=== PATIENT | male | born 1995 | race Caucasian/White ===

== ENCOUNTER 2017-01-21 20:24 | Inpatient (IN) | payer OTHER ==
[2017-01-21 21:38] LABS: HEMATOCRIT 45.2 % (41.0-60); HEMOGLOBIN 14.6 gm/dL (12-16); MEAN CELL VOLUME 75.4 fl (80-99); MEAN CORPUSCULAR HEMOGLOBIN 24.3 pg (26.0-30.0); MEAN CORPUSCULAR HGB CONC 32.3 pg (28.0-36.0); MEAN PLATELET VOLUME 10.4 fl; NEUTROPHILE ABSOLUTE 18.8 Th/cmm (1.8-8.0); PLATELET COUNT 207 Th/cmm (150-400); RED BLOOD COUNT 5.99 Mil/cmm (4.30-5.70); RED CELL DISTRIBUTION WIDTH 14.5 % (11.5-20.0)
[2017-01-21 21:41] LABS: WHITE BLOOD COUNT 20.6 Th/cmm (4.8-10.8)
[2017-01-21 21:43] LABS: INR 1.13 (0.5-1.4); PROTHROMBIN TIME (TEST) 11.9 SECONDS (9.5-11.5)
[2017-01-21 21:48] LABS: ALB/GLOB RATIO 1.6 (1.0-1.8); ALKALINE PHOSPHATASE 119 U/L (34-104); ANION GAP 12.2 (7.0-16.0); BILIRUBIN,TOTAL 1.4 mg/dL (0.3-1.0); BUN - UREA NITROGEN 11 mg/dL (7-25); BUN/CREATININE RATIO 15.7; CALCIUM SERUM 9.2 mg/dL (8.6-10.3); CARBON DIOXIDE 22.3 mEq/L (21.0-31.0); CHLORIDE 106 mEq/L (98-107); CREATININE - SERUM 0.7 mg/dL (0.7-1.3); GLUCOSE 132 mg/dL (70-105); POTASSIUM SERUM 3.5 mEq/L (3.5-5.1); SGOT 92 U/L (13-39); SGPT/ALT 119 U/L (7-52); SODIUM SERUM 137 mEq/L (136-145)
[2017-01-21 21:56] LABS: MICROCYTOSIS 2+; NEUTROPHILS 94 % (40-80); PLATELET ESTIMATE ADEQUATE (NORMAL)
--- NOTE | 2017-01-21 22:20 | ED Physician Chart ---
ED Chief Complaint/HPI - Patient Information Date Seen:: 01/21/17 Time Seen:: 21:00 Chief Complaint:: VOMITING History of Present Illness:: THIS IS A 21 YEAR OLD MENTALLY SLOW MALE BIB HIS MOTHER BECAUSE OF HIS VOMITING AND ABDOMINAL PAIN. HE WAS SEEN BY HIS PMD AND GIVEN ZOFRAN FOR VOMITING. HE HAS NOT HAD ABDOMINAL SURGERY IN THE PAST. HE HAS NOT HAD FEVER OR DIARRHEA. HE IS OBESE. HE HAD A SEIZURE FOUR YEARS AGO BUT OTHERWISE NO MEDICAL PROBLEMS EXCEPT FOR THE MENTATION. Allergies:: Allergies Allergy/AdvReac Type Severity Reaction Status Date / Time No Known Allergies Allergy Verified 01/21/17 21:56 Vitals:: Vital Signs - 8 hr 01/21/17 20:40 Temp 98.1 F HR 98 RR 20 BP 128/85 O2 Sat % 97 Historian:: Other (MOTHER) Review:: Nurse's Note Reviewed ED Review of Systems - Review of Systems General/Constitutional: Other (THIS PATIENT IS UNABLE TO GIVE A REVIEW OF SYSTEMS.) Skin: No skin lesions, No rash, No bruising Head: No headache, No light-headedness Eyes: No loss of vision, No pain, No diplopia ENT: No earache, No nasal drainage, No sore throat, No tinnitus Neck: No neck pain, No swelling, No thyromegaly, No stiffness, No mass noted Cardio Vascular: No chest pain, No palpitations, No PND, No orthopnea, No edema Pulmonary: No SOB, No cough, No sputum, No wheezing GI: No nausea, No vomiting, No diarrhea, No pain, No melena, No hematochezia, No constipation, No hematemesis G/U: No dysuria, No frequency, No hematuria Musculoskeletal: No bone or joint pain, No back pain, No muscle pain Endocrine: No polyuria, No polydipsia Psychiatric: No prior psych history, No depression, No anxiety, No suicidal ideation Hematopoietic: No bruising, No lymphadenopathy Allergic/Immuno: No urticaria, No angioedema Neurological: No syncope, No focal symptoms, No weakness, No paresthesia, No headache, No seizure, No dizziness, No confusion, No vertigo ED Past Medical History - Past Medical History Obtainable: Yes Past Medical History: Seizures, Other (RETARDATION.) Family Medical History - Family Member Mother History Unknown: Yes Ethnicity: Living Status: Still Living Other Medical History: severe obesity ED Physical Exam - Physical Examination General/Constitutional: Awake, Well-developed, well-nourished, Alert, No distress, GCS 15, Non-toxic appearing, Ambulatory Head: Atraumatic Eyes: Lids, conjuctiva normal, PERRL, EOMI Skin: Nl inspection, No rash, No skin lesions, No ecchymosis, Well hydrated, No lymphadenopathy ENMT: External ears, nose nl, Nasal exam nl, Lips, teeth, gums nl Neck: Nontender, Full ROM w/o pain, No JVD, No nuchal rigidity, No bruit, No mass, No stridor Respiratory: Nl effort/Exclusion, Clear to Auscultation, No Wheeze/Rhonchi/Rales Cardio Vascular: RRR, No murmur, gallop, rubs, NL S1 S2 GI: No tenderness/rebounding/guarding (TENDERNESS OF THE RIGHT LOWER QUADRANT WITH REBOUND), No organomegaly, No hernia, Normal BS's, Nondistended, No mass/ bruits, No McBurney tenderness : No CVA tenderness Extremities: No tenderness or effusion, Full ROM, normal strength in all extremities, No edema, Normal digits & nails Neuro/Psych: Alert/oriented, DTR's symmetric, Normal sensory exam, Normal motor strength, Judgement/insight normal, Mood normal, Normal gait, No focal deficits Misc: Normal back, No paraspinal tenderness ED Labs/Radiology/EKG Results - Lab Results Results: Laboratory Tests 01/21/17 01/21/17 01/21/17 21:16 21:16 21:16 WBC 20.6 H* RBC 5.99 H Hgb 14.6 Hct 45.2 MCV 75.4 L MCH 24.3 L MCHC Differential 32.3 RDW 14.5 Plt Count 207 MPV 10.4 Neutrophils (Manual) 94 H Lymphocytes 4 L Monocytes 2 Platelet Estimate ADEQUATE Microcytosis 2+ RBC Morph Micro Appear ABNORMAL PT 11.9 H INR 1.13 Sodium 137 Potassium 3.5 Chloride 106 Carbon Dioxide 22.3 Anion Gap 12.2 BUN 11 Creatinine 0.7 Est GFR ( Amer) > 60.0 Est GFR (Non-Af Amer) > 60.0 BUN/Creatinine Ratio 15.7 Glucose 132 H Calcium 9.2 Total Bilirubin 1.4 H AST 92 H ALT 119 H Alkaline Phosphatase 119 H Troponin I Total Protein 7.4 Albumin 4.5 Globulin 2.9 Albumin/Globulin Ratio 1.6 01/21/17 21:16 WBC RBC Hgb Hct MCV MCH MCHC Differential RDW Plt Count MPV Neutrophils (Manual) Lymphocytes Monocytes Platelet Estimate Microcytosis RBC Morph Micro Appear PT INR Sodium Potassium Chloride Carbon Dioxide Anion Gap BUN Creatinine Est GFR ( Amer) Est GFR (Non-Af Amer) BUN/Creatinine Ratio Glucose Calcium Total Bilirubin AST ALT Alkaline Phosphatase Troponin I < 0.01 L Total Protein Albumin Globulin Albumin/Globulin Ratio ED Assessment - Assessment General Assessment: gastroenteritis ED Septic Shock - . Is Septic Shock (SBP<90, OR Lactate>4 mmol\L) present?: No - <6hrs of presentation: Vital Signs: Vital Signs - 8 hr 01/21/17 20:40 Temp 98.1 F HR 98 RR 20 BP 128/85 O2 Sat % 97 ED Reassessment (Disposition) - Reassessment Reassessment Condition:: Unchanged - Aftercare/Follow up Instructions Aftercare/Follow-Up Instructions:: Counseled pt & family regarding lab results/ diagnosis & need follow up - Patient Disposition Discharge/Transfer:: Acute Care w/in this hosp Admitting Medical Physician:: Mian Tovar Condition at Disposition:: Unchanged ED Discharge Plan - Patient Disposition Admit/Discharge/Transfer: Acute Care w/in this hosp Condition at Disposition: Unchanged
[2017-01-21] MEDS ORDERED: IOHEXOL 300MG/ML 100 ML VIAL ONE (22:27)
[2017-01-22 01:17] LABS: AMYLASE SERUM 381 U/L (29-103); LIPASE 530 U/L (11-82)
[2017-01-22 02:15] VITALS: BP 125/72
[2017-01-22] MEDS ORDERED: D5-0.45NS 1,000 ML IV SCH (03:15)
[2017-01-22] MEDS ORDERED: Influenza Vaccine 0.5 mL Syr IM ONE (04:35)
[2017-01-22] MEDS ORDERED: Pneumococcal Vaccine 0.5 mL Vial IM ONE (04:35)
[2017-01-22 06:35] LABS: % BASOPHILS 0.2 % (0.0-2.0); % EOSINOPHILS 0.6 % (0.0-5.0); % LYMPHOCYTES 11.4 % (20.0-50.0); % MONOCYTES 2.7 % (2.0-10.0); % NEUTROPHILS 85.1 % (40.0-80.0); HEMATOCRIT 41.2 % (41.0-60); HEMOGLOBIN 13.7 gm/dL (12-16); MEAN CELL VOLUME 75.5 fl (80-99); MEAN CORPUSCULAR HEMOGLOBIN 25.1 pg (26.0-30.0); MEAN CORPUSCULAR HGB CONC 33.3 pg (28.0-36.0); MEAN PLATELET VOLUME 9.8 fl; PLATELET COUNT 198 Th/cmm (150-400); RED BLOOD COUNT 5.46 Mil/cmm (4.30-5.70); RED CELL DISTRIBUTION WIDTH 14.7 % (11.5-20.0)
[2017-01-22 06:57] LABS: ALB/GLOB RATIO 1.3 (1.0-1.8); ALKALINE PHOSPHATASE 100 U/L (34-104); ANION GAP 10.3 (7.0-16.0); BILIRUBIN,TOTAL 1.1 mg/dL (0.3-1.0); BUN - UREA NITROGEN 11 mg/dL (7-25); BUN/CREATININE RATIO 18.3; CALCIUM SERUM 8.9 mg/dL (8.6-10.3); CARBON DIOXIDE 25.6 mEq/L (21.0-31.0); CHLORIDE 105 mEq/L (98-107); CREATININE - SERUM 0.6 mg/dL (0.7-1.3); SGOT 53 U/L (13-39); SGPT/ALT 89 U/L (7-52); SODIUM SERUM 138 mEq/L (136-145)
[2017-01-22 07:07] LABS: POTASSIUM SERUM 2.9 mEq/L (3.5-5.1)
[2017-01-22 07:08] LABS: GLUCOSE 112 mg/dL (70-105)
--- NOTE | 2017-01-22 07:52 | Diagnostic Imaging Report ---
CT scan of the abdomen and pelvis without intravenous contrast History: Right lower quadrant pain Total DLP equals 1005 CTDI equals 18.4 Axial sections were obtained from the xiphoid process down to the pubic symphysis. There is evidence of nonspecific right upper quadrant mesenteric edema which might be due to symmetric changes pancreatitis or gastritis. The study is limited without the administration of contrast material. The liver demonstrates a normal size and contour. No focal lesions are seen. The spleen appears normal. No abnormalities are seen in the region of the pancreas. The kidneys appear normal bilaterally. The appendix not visualized. The exam of the pelvis demonstrates preservation of normal fat planes. No abnormal soft tissue masses. No abnormal fluid collections. As no evidence of diverticular disease of diverticulitis. Impression: Nonspecific right upper quadrant mesenteric edema. Findings; represent gastritis of pancreatitis. Evaluation is limited by motion artifacts and lack of contrast material.
--- NOTE | 2017-01-22 07:58 | History and Physical ---
History of Present Illness - HPI Chief Complaint: abdominal pain, nausea and vomiting HPI: 21 year old male who presents to [facility] ER for complaints of nausea and vomiting along with abdominal pain. Patient was seen by his PMD who gave him Zofran for his vomiting. He is mentally challenged and is here with his mother. He has no previous history of abdominal surgery. While in the ER patient was found to have an elevated WBC 20K elevated LFTs AST 92 ALT 119 Alk 119 amylase 381 and lipase 530. He was subsequently admitted for further evaluation and treatment. Vital Signs: Last Vital Signs Temp 99.3 F 01/22/17 04:07 Pulse 102 01/22/17 04:07 Resp 18 01/22/17 07:35 BP 125/72 01/22/17 04:07 Pulse Ox 97 01/22/17 04:07 Past Medical History Cardiovascular: Report: No Pertinent Hx Pulmonary: Report: No Pertinent Hx ERP SPECIALIST: Report: Seizure, Other (mentally challenged) GI: Report: No Pertinent Hx Psych: Report: No Pertinent Hx Musculoskeletal: Report: No Pertinent Hx Rheumatologic: Report: No pertinent Hx Infectious Disease: Report: No Pertinent Hx Renal/: Report: No Pertinent Hx Endocrine: Report: No Pertinent Hx Dermatology: Report: No Pertinent Hx - Past Surgical History Past Surgical History: No pertinent Hx Family Medical History - Family Member Mother History Unknown: Yes Name:: Natali Ramirez Ethnicity: Living Status: Still Living Hx Family Cancer: No Hx Family Coronary Artery Disease: No Hx Family Congestive Heart Failure: No Hx Family Hypertension: No Hx Family Stroke: No Hx Family Diabetes: No Hx Family Seizures: No Hx Family Dementia: No Hx Family AIDS: No Hx Family HIV: No Hx Family COPD: No Hx Family Hepatitis: No Hx Family Psychiatric Problems: No Hx Family Tuberculosis: No Other Medical History: severe obesity Social History Smoke: No Alcohol: None Drugs: None Lives: With Family - Medications Home Medications: Home Medication Medication Instructions Recorded Type NK [No Home Meds] 01/21/17 History - Allergies Allergies/Adverse Reactions: Allergies Allergy/AdvReac Type Severity Reaction Status Date / Time No Known Allergies Allergy Verified 01/21/17 21:56 Review of Systems - Review of Systems Constitutional: Report: No Significant Eyes: Report: No Significant ENT: Report: No Significant Respiratory: Report: No Significant Cardiovascular: Report: No Significant Gastrointestinal: Report: Nausea, Vomiting, Abdominal Pain Genitourinary: Report: No Significant Musculoskeletal: Report: No Significant Skin: Report: No Significant Neurological: Report: No Significant Physical Exam - Physical Exam HEENT: Report: Ears Nose Throat within normal limits, Pharnyx within normal limits Neck: Report: Within normal limits Cardiovascular Systems: Report: +s1/s2 noted, Regular, Rate and Rhythm Respiratory: Report: Breath Sounds are within normal limits, Clear to Auscultation of lung lezama Abdomen: Report: Tender to palpation Extremities: Report: Non-tender to palpation. Skin: Report: Color of skin is within normal limits Neuro/Psych: Report: Mood affect is within normal limits - Lab Results All Lab Results last 24 hours: Laboratory Results - last 24 hr 01/22/17 01/22/17 01/22/17 05:30 05:30 05:30 WBC 13.0 H D RBC 5.46 Hgb 13.7 Hct 41.2 MCV 75.5 L MCH 25.1 L MCHC Differential 33.3 RDW 14.7 Plt Count 198 MPV 9.8 Neutrophils % 85.1 H Lymphocytes % 11.4 L Monocytes % 2.7 Eosinophils % 0.6 Basophils % 0.2 Sodium 138 Potassium 2.9 L* Chloride 105 Carbon Dioxide 25.6 Anion Gap 10.3 BUN 11 Creatinine 0.6 L Est GFR ( Amer) > 60.0 Est GFR (Non-Af Amer) > 60.0 BUN/Creatinine Ratio 18.3 Glucose 112 H D Calcium 8.9 Magnesium 2.1 Total Bilirubin 1.1 H AST 53 H ALT 89 H Alkaline Phosphatase 100 Total Protein 7.0 Albumin 4.0 L Globulin 3.0 Albumin/Globulin Ratio 1.3 - Assessment Assessment: abdominal pain r/o gallstones r/o pancreatitis leukocytosis hypokalemia elevated LFTs elevated amylase and lipase - Plan Plan: GI consult abd U/S Rocephin 1gm IV repeat CBC,CMP, amylase, lipase D5 1/2NS w/ KCL 20 meq
[2017-01-22 08:21] LABS: AMYLASE SERUM 189 U/L (29-103); LIPASE 186 U/L (11-82)
[2017-01-22] MEDS: cefTRIAXone 1 GM in Sodium Chloride 0.9% 50 ML IV SCH (09:55)
[2017-01-22] MEDS: D5-0.45NS w/20 mEq KCL 1,000 ML IV SCH (09:55)
[2017-01-22] MEDS: KCL 20mEq/100mL Premix 20 MEQ/100 ML PIGGYBACK IV SCH ×2 (09:56→14:55)
[2017-01-22] MEDS ORDERED: Diatrizoate Meglumine/Diatri 30 mL Sol PO ONE (12:55)
--- NOTE | 2017-01-22 15:19 | Diagnostic Imaging Report ---
Portable chest x-ray HISTORY: Nasogastric tube placement The exam demonstrates a nasogastric tube extending below the diaphragm into the region of the stomach. There is a severe scoliosis of the thoracic spine convex left. No focal pulmonary processes. IMPRESSION 1. Nasogastric tube extending below the diaphragm into the region of the stomach. 2. No focal pulmonary processes
[2017-01-22 15:21] LABS: POTASSIUM SERUM 3.4 mEq/L (3.5-5.1)
--- NOTE | 2017-01-23 02:30 | Consultation ---
DATE OF CONSULTATION: 01/22/2017 INPATIENT GASTROINTESTINAL CONSULTATION REFERRING PHYSICIAN: Mian Tovar D.O. REASON FOR CONSULTATION: Pancreatitis. HISTORY OF PRESENT ILLNESS: This is a 21-year-old male who was brought into the hospital because of epigastric pain associated with some nausea and vomiting that was bile in nature. The patient has mental challenges, is not a great historian. There are no reports of any GI bleeding. No reports of any diarrhea or constipation. PAST MEDICAL HISTORY: Seizure disorder, mental retardation. PAST SURGICAL HISTORY: None to abdomen recently. FAMILY HISTORY: Noncontributory. SOCIAL HISTORY: Denies tobacco, alcohol or IV drug usage. ALLERGIES: None. CURRENT MEDICATIONS: Ceftriaxone, Zofran, Protonix, potassium, and IV fluids. REVIEW OF SYSTEMS: Ten-point review of systems is unobtainable. PHYSICAL EXAMINATION: VITAL SIGNS: Temperature 97.1, breathing 18, pulse 67, blood pressure 120/61, satting 96%. GENERAL: In no apparent distress. EYES: Anicteric. Normal conjunctivae. HEENT: Normocephalic, atraumatic. Moist mucous membranes. NECK: Soft, supple. CHEST: Clear. No effort. CARDIOVASCULAR: Regular rate and rhythm. ABDOMEN: Soft, nondistended, tender epigastrium. No rebound or guarding. SKIN: Warm, dry. EXTREMITIES: Reveal no cyanosis. PSYCHOLOGICAL: Awake and alert. LABORATORY DATA: White count is 13, hemoglobin 13.7, platelets of 198. INR is 1.13, total bilirubin 1.1, AST 53, ALT 89, alkaline phosphatase 100, lipase 186, previously with lipase is 530. CT abdomen and pelvis suggests pancreatitis and/or gastritis. IMPRESSION: A 21-year-old male who has been having epigastric pain, nausea, vomiting, cause could be due to pancreatitis, especially since the CT is suggestive of pancreatitis as well as the elevation of lipase. On the other hand, it could be a component of gastritis as well, which could also present with similar symptoms. The patient at present time is on Protonix and would continue this medication. Ultrasound can be performed to rule out other causes of pancreatitis. The patient does not have any alcohol consumption, making that less likely. Triglyceride level can also be checked to rule that out. Calcium level was reviewed and was within normal limits. PLAN: 1. Continue supportive care, IV fluids, pain control. 2. If nausea and vomiting persists, may need an NG tube placement. 3. Obtain abdominal ultrasound to rule out gallstones. 4. Follow LFTs. 5. Continue supportive care. Thank you for allowing me to participate. Please call me if any questions. JOB# [id number]
[2017-01-23] MEDS: D5-0.45NS w/20 mEq KCL 1,000 ML IV SCH ×2 (06:40→10:16)
--- NOTE | 2017-01-23 07:05 | Diagnostic Imaging Report ---
Exam: Portable chest x-ray HISTORY: NG tube placement Findings: Portable summation of chest 1711 was reviewed. The study demonstrates NG tube passes stomach. IMPRESSION: NG tube in the stomach.
[2017-01-23 07:07] LABS: % BASOPHILS 0.6 % (0.0-2.0); % EOSINOPHILS 1.9 % (0.0-5.0); % LYMPHOCYTES 11.9 % (20.0-50.0); % MONOCYTES 2.3 % (2.0-10.0); % NEUTROPHILS 83.3 % (40.0-80.0); HEMATOCRIT 41.6 % (41.0-60); HEMOGLOBIN 13.8 gm/dL (12-16); MEAN CELL VOLUME 75.7 fl (80-99); MEAN CORPUSCULAR HEMOGLOBIN 25.1 pg (26.0-30.0); MEAN CORPUSCULAR HGB CONC 33.2 pg (28.0-36.0); NEUTROPHILE ABSOLUTE 10.2 Th/cmm (1.8-8.0); PLATELET COUNT 215 Th/cmm (150-400); RED BLOOD COUNT 5.49 Mil/cmm (4.30-5.70)
[2017-01-23 07:09] LABS: WHITE BLOOD COUNT 12.3 Th/cmm (4.8-10.8)
[2017-01-23 07:26] LABS: ALB/GLOB RATIO 1.3 (1.0-1.8); ALKALINE PHOSPHATASE 94 U/L (34-104); ANION GAP 11.2 (7.0-16.0); BILIRUBIN,DIRECT 0.18 mg/dL (0.0-0.2); BILIRUBIN,TOTAL 0.8 mg/dL (0.3-1.0); BUN - UREA NITROGEN 12 mg/dL (7-25); CALCIUM SERUM 8.8 mg/dL (8.6-10.3); CARBON DIOXIDE 23.2 mEq/L (21.0-31.0); CHLORIDE 107 mEq/L (98-107); CREATININE - SERUM 0.6 mg/dL (0.7-1.3); GLUCOSE 109 mg/dL (70-105); LIPASE 24 U/L (11-82); POTASSIUM SERUM 3.4 mEq/L (3.5-5.1); SGOT 21 U/L (13-39); SGPT/ALT 58 U/L (7-52); SODIUM SERUM 138 mEq/L (136-145)
--- NOTE | 2017-01-23 08:16 | General Progress Note ---
Subjective - Review of Systems Service Date: 01/23/17 Subjective: Patient was seen and examined. Patient symptoms appear to be improving. No further nausea or vomiting. Objective - Results Result Diagrams: 01/23/17 06:48 01/23/17 06:48 Recent Labs: Laboratory Last Values WBC 12.3 Th/cmm (4.8-10.8) H 01/23/17 06:48 RBC 5.49 Mil/cmm (4.30-5.70) 01/23/17 06:48 Hgb 13.8 gm/dL (12-16) 01/23/17 06:48 Hct 41.6 % (41.0-60) 01/23/17 06:48 MCV 75.7 fl (80-99) L 01/23/17 06:48 MCH 25.1 pg (26.0-30.0) L 01/23/17 06:48 MCHC Differential 33.2 pg (28.0-36.0) 01/23/17 06:48 RDW 14.0 % (11.5-20.0) 01/23/17 06:48 Plt Count 215 Th/cmm (150-400) 01/23/17 06:48 MPV 9.0 fl 01/23/17 06:48 Neutrophils % 83.3 % (40.0-80.0) H 01/23/17 06:48 Lymphocytes % 11.9 % (20.0-50.0) L 01/23/17 06:48 Monocytes % 2.3 % (2.0-10.0) 01/23/17 06:48 Eosinophils % 1.9 % (0.0-5.0) 01/23/17 06:48 Basophils % 0.6 % (0.0-2.0) 01/23/17 06:48 Neutrophils (Manual) 94 % (40-80) H 01/21/17 21:16 Lymphocytes 4 % (20-50) L 01/21/17 21:16 Monocytes 2 % (2-10) 01/21/17 21:16 Platelet Estimate ADEQUATE (NORMAL) 01/21/17 21:16 Microcytosis 2+ 01/21/17 21:16 RBC Morph Micro Appear ABNORMAL (NORMAL) 01/21/17 21:16 PT 11.9 SECONDS (9.5-11.5) H 01/21/17 21:16 INR 1.13 (0.5-1.4) 01/21/17 21:16 Sodium 138 mEq/L (136-145) 01/23/17 06:48 Potassium 3.4 mEq/L (3.5-5.1) L 01/23/17 06:48 Chloride 107 mEq/L (98-107) 01/23/17 06:48 Carbon Dioxide 23.2 mEq/L (21.0-31.0) 01/23/17 06:48 Anion Gap 11.2 (7.0-16.0) 01/23/17 06:48 BUN 12 mg/dL (7-25) 01/23/17 06:48 Creatinine 0.6 mg/dL (0.7-1.3) L 01/23/17 06:48 Est GFR ( Amer) > 60.0 ml/min (>90) 01/23/17 06:48 Est GFR (Non-Af Amer) > 60.0 ml/min 01/23/17 06:48 BUN/Creatinine Ratio 20.0 01/23/17 06:48 Glucose 109 mg/dL (70-105) H 01/23/17 06:48 Whole Bld Lactic Acid 1.25 mmol/L (0.60-1.99) 01/21/17 21:16 Calcium 8.8 mg/dL (8.6-10.3) 01/23/17 06:48 Magnesium 2.1 mg/dL (1.9-2.7) 01/22/17 05:30 Total Bilirubin 0.8 mg/dL (0.3-1.0) 01/23/17 06:48 Direct Bilirubin 0.18 mg/dL (0.0-0.2) 01/23/17 06:48 AST 21 U/L (13-39) 01/23/17 06:48 ALT 58 U/L (7-52) H 01/23/17 06:48 Alkaline Phosphatase 94 U/L (34-104) 01/23/17 06:48 Troponin I < 0.01 ng/mL (0.01-0.05) L 01/21/17 21:16 Total Protein 7.2 gm/dL (6.0-8.3) 01/23/17 06:48 Albumin 4.0 gm/dL (4.2-5.5) L 01/23/17 06:48 Globulin 3.2 gm/dL 01/23/17 06:48 Albumin/Globulin Ratio 1.3 (1.0-1.8) 01/23/17 06:48 Triglycerides 73 mg/dL (<150) 01/22/17 13:15 Amylase 189 U/L (29-103) H 01/22/17 05:30 Lipase 24 U/L (11-82) 01/23/17 06:48 TSH 1.75 uIU/ml (0.34-5.60) 01/21/17 21:16 RPR NONREACTIVE (NONREACTIVE) 01/21/17 21:16 - Physical Exam Vitals and I&O: Vital Signs Temp 98.4 F 01/23/17 04:00 Pulse 67 01/23/17 04:00 Resp 17 01/23/17 04:00 BP 106/69 01/23/17 04:00 Pulse Ox 97 01/23/17 04:00 Intake & Output 01/22/17 01/23/17 01/23/17 18:59 06:59 18:59 Intake Total 150 1000 Balance 150 1000 Weight (lbs) 130.635 kg Intake: Intake, IV Amount 150 1000 D5-0.45NS w/20 mEq KCL 1, 1000 000 ml @ 75 mls/hr IV . [id number] [facility] Rx#:[id number] KCL 20mEq/100mL Premix 20 100 meq In 100 ml @ 50 mls/ hr IV Q2H [facility] Rx#: [id number] cefTRIAXone 1 gm In 50 Sodium Chloride 0.9% 50 ml @ 100 mls/hr IV Q24HR [facility] Rx#:[id number] Active Medications: Current Medications Ceftriaxone Sodium 1 gm/ (Sodium Chloride) 50 mls @ 100 mls/hr IV Q24HR [facility] Stop: 03/23/17 08:59 Last Infusion: 01/22/17 14:28 Dose: Infused Potassium Chloride/Dextrose/Sod Cl (D5-0.45ns W/20 Meq Kcl) 1,000 mls @ 75 mls/ hr IV .[id number] [facility] Stop: 03/23/17 07:59 Last Admin: 01/23/17 06:40 Dose: 75 mls/hr Potassium Chloride (Potassium Chloride) 20 meq in 100 mls @ 50 mls/hr IV Q2H [facility] Stop: 01/23/17 12:14 Ondansetron HCl (Zofran) 4 mg IV Q6H PRN PRN Reason: Nausea / Vomiting Stop: 03/23/17 03:05 Pantoprazole Sodium (Protonix) 40 mg IVP DAILY [facility] Stop: 03/23/17 08:59 Last Admin: 01/22/17 09:56 Dose: 40 mg General: Alert, Oriented x3, No acute distress HEENT: Atraumatic, PERRLA, EOMI Neck: Supple Cardiovascular: Regular rate, Normal S1, Normal S2 Abdomen: Bowel sounds Extremities: no Clubbing, no Cyanosis, no Edema - Procedures Procedures: Procedures Procedure Code Date CHALAZION EXCISION 10.2209/17/05 REMOVE EYELID LESION 84172 09/17/05 Assessment/Plan - Assessment Assessment: abdominal pain r/o gallstones r/o pancreatitis vs gastroenteritis ... for gallbladder US today. leukocytosis improved ... will continue IV antibiotics. hypokalemia ... will order krider 40 meq elevated LFTs improving. elevated amylase and lipase - Plan Plan: GI consult abd U/S Rocephin 1gm IV repeat CBC,CMP, amylase, lipase D5 1/2NS w/ KCL 20 meq
[2017-01-23] MEDS: KCL 20mEq/100mL Premix 20 MEQ/100 ML PIGGYBACK IV SCH ×2 (09:52→13:31)
--- NOTE | 2017-01-23 11:13 | Diagnostic Imaging Report ---
Abdominal and HISTORY: Pain The liver exhibits a homogeneous parenchyma. No focal lesions. Extensive acoustic shadowing along with an echogenic density originates from the gallbladder fossa region. The combination is most likely associated with cholelithiasis. Bowel gas can limit the appearance. A radionuclide biliary scan (HIDA scan) would provide for further assessment of gallbladder function. No biliary dilatation pence common bile duct is 4 mm). The pancreas cannot be seen due to bowel gas. The right kidney is unremarkable. The left kidney cannot be well seen due to bowel gas. No other definite retroperitoneal or intraabdominal abnormalities. IMPRESSION: 1. Limited exam related to patient's size, body habitus, bowel gas 2. Echogenic density and acoustic shadowing originating from the gallbladder fossa region. Assuming the gallbladder has not been removed, findings may be associated with cholelithiasis. Bowel gas could Emily the appearance. If indicated, a radionuclide biliary scan (HIDA scan) would provide for further assessment of gallbladder function.
--- NOTE | 2017-01-23 11:14 | Diagnostic Imaging Report ---
Portable chest x-ray HISTORY: Nasogastric tube positioning Compared with prior exam of 01/22/2017, the nasogastric tube cannot be seen below the region of the midesophagus. No focal pulmonary processes are seen. IMPRESSION: 1. Nasogastric tube cannot be visualized below the region of the mid esophagus. This should be repositioned.
[2017-01-23 11:15] LABS: URINE BILIRUBIN SMALL (NEGATIVE); URINE BLOOD NEGATIVE (NEGATIVE); URINE GLUCOSE (UA) NEGATIVE (NEGATIVE); URINE KETONE 40 mg/dL (NEGATIVE); URINE PROTEIN 30 mg/dL (NEGATIVE)
[2017-01-23 11:20] LABS: URINE COLOR YELLOW
[2017-01-23 11:22] LABS: URINE BACTERIA FEW /hpf (NONE SEEN); URINE EPITHELIAL CELLS FEW /lpf (FEW); URINE RBC 0-2 /hpf (0-5)
[2017-01-23 11:31] LABS: AMPHETAMINE URINE NEGATIVE (NEGATIVE); BARBITURATES URINE NEGATIVE (NEGATIVE); METHADONE URINE NEGATIVE (NEGATIVE)
[2017-01-23] MEDS: cefTRIAXone 1 GM in Sodium Chloride 0.9% 50 ML IV SCH (12:25)
--- NOTE | 2017-01-23 16:45 | GI Progress Note ---
Subjective - Review of Systems Subjective: DENIES ABD PAIN OR N/V Objective - Results Result Diagrams: 01/23/17 06:48 01/23/17 06:48 Recent Labs: Laboratory Last Values WBC 12.3 Th/cmm (4.8-10.8) H 01/23/17 06:48 RBC 5.49 Mil/cmm (4.30-5.70) 01/23/17 06:48 Hgb 13.8 gm/dL (12-16) 01/23/17 06:48 Hct 41.6 % (41.0-60) 01/23/17 06:48 MCV 75.7 fl (80-99) L 01/23/17 06:48 MCH 25.1 pg (26.0-30.0) L 01/23/17 06:48 MCHC Differential 33.2 pg (28.0-36.0) 01/23/17 06:48 RDW 14.0 % (11.5-20.0) 01/23/17 06:48 Plt Count 215 Th/cmm (150-400) 01/23/17 06:48 MPV 9.0 fl 01/23/17 06:48 Neutrophils % 83.3 % (40.0-80.0) H 01/23/17 06:48 Lymphocytes % 11.9 % (20.0-50.0) L 01/23/17 06:48 Monocytes % 2.3 % (2.0-10.0) 01/23/17 06:48 Eosinophils % 1.9 % (0.0-5.0) 01/23/17 06:48 Basophils % 0.6 % (0.0-2.0) 01/23/17 06:48 Neutrophils (Manual) 94 % (40-80) H 01/21/17 21:16 Lymphocytes 4 % (20-50) L 01/21/17 21:16 Monocytes 2 % (2-10) 01/21/17 21:16 Platelet Estimate ADEQUATE (NORMAL) 01/21/17 21:16 Microcytosis 2+ 01/21/17 21:16 RBC Morph Micro Appear ABNORMAL (NORMAL) 01/21/17 21:16 PT 11.9 SECONDS (9.5-11.5) H 01/21/17 21:16 INR 1.13 (0.5-1.4) 01/21/17 21:16 Sodium 138 mEq/L (136-145) 01/23/17 06:48 Potassium 3.4 mEq/L (3.5-5.1) L 01/23/17 06:48 Chloride 107 mEq/L (98-107) 01/23/17 06:48 Carbon Dioxide 23.2 mEq/L (21.0-31.0) 01/23/17 06:48 Anion Gap 11.2 (7.0-16.0) 01/23/17 06:48 BUN 12 mg/dL (7-25) 01/23/17 06:48 Creatinine 0.6 mg/dL (0.7-1.3) L 01/23/17 06:48 Est GFR ( Amer) > 60.0 ml/min (>90) 01/23/17 06:48 Est GFR (Non-Af Amer) > 60.0 ml/min 01/23/17 06:48 BUN/Creatinine Ratio 20.0 01/23/17 06:48 Glucose 109 mg/dL (70-105) H 01/23/17 06:48 Whole Bld Lactic Acid 1.25 mmol/L (0.60-1.99) 01/21/17 21:16 Calcium 8.8 mg/dL (8.6-10.3) 01/23/17 06:48 Magnesium 2.1 mg/dL (1.9-2.7) 01/22/17 05:30 Total Bilirubin 0.8 mg/dL (0.3-1.0) 01/23/17 06:48 Direct Bilirubin 0.18 mg/dL (0.0-0.2) 01/23/17 06:48 AST 21 U/L (13-39) 01/23/17 06:48 ALT 58 U/L (7-52) H 01/23/17 06:48 Alkaline Phosphatase 94 U/L (34-104) 01/23/17 06:48 Troponin I < 0.01 ng/mL (0.01-0.05) L 01/21/17 21:16 Total Protein 7.2 gm/dL (6.0-8.3) 01/23/17 06:48 Albumin 4.0 gm/dL (4.2-5.5) L 01/23/17 06:48 Globulin 3.2 gm/dL 01/23/17 06:48 Albumin/Globulin Ratio 1.3 (1.0-1.8) 01/23/17 06:48 Triglycerides 73 mg/dL (<150) 01/22/17 13:15 Amylase 54 U/L (29-103) 01/23/17 08:15 Lipase 24 U/L (11-82) 01/23/17 06:48 TSH 1.75 uIU/ml (0.34-5.60) 01/21/17 21:16 Urine Source CLEAN C 01/23/17 10:15 Urine Color YELLOW 01/23/17 10:15 Urine Clarity HAZY (CLEAR) 01/23/17 10:15 Urine pH 6.0 (4.6 - 8.0) 01/23/17 10:15 Ur Specific [place] 1.025 (1.005-1.030) 01/23/17 10:15 Urine Protein 30 mg/dL (NEGATIVE) H 01/23/17 10:15 Urine Glucose (UA) NEGATIVE mg/dL (NEGATIVE) 01/23/17 10:15 Urine Ketones 40 mg/dL (NEGATIVE) H 01/23/17 10:15 Urine Blood NEGATIVE (NEGATIVE) 01/23/17 10:15 Urine Nitrate NEGATIVE (NEGATIVE) 01/23/17 10:15 Urine Bilirubin SMALL (NEGATIVE) H 01/23/17 10:15 Urine Urobilinogen 2.0 E.U./dL (0.2 - 1.0) 01/23/17 10:15 Ur Leukocyte Esterase NEGATIVE (NEGATIVE) 01/23/17 10:15 Urine RBC 0-2 /hpf (0-5) H 01/23/17 10:15 Urine WBC 2-5 /hpf (0-5) H 01/23/17 10:15 Ur Epithelial Cells FEW /lpf (FEW) 01/23/17 10:15 Urine Bacteria FEW /hpf (NONE SEEN) 01/23/17 10:15 Urine Mucus FEW /lpf (FEW) 01/23/17 10:15 Urine Opiates Screen NEGATIVE (NEGATIVE) 01/23/17 10:15 Urine Methadone Screen NEGATIVE (NEGATIVE) 01/23/17 10:15 Ur Barbiturates Screen NEGATIVE (NEGATIVE) 01/23/17 10:15 Ur Tricyclics Screen NEGATIVE (NEGATIVE) 01/23/17 10:15 Ur Phencyclidine Scrn NEGATIVE (NEGATIVE) 01/23/17 10:15 Amphetamines Screen NEGATIVE (NEGATIVE) 01/23/17 10:15 U Methamphetamines Scrn NEGATIVE (NEGATIVE) 01/23/17 10:15 U Benzodiazepines Scrn NEGATIVE (NEGATIVE) 01/23/17 10:15 U Cocaine Metab Screen NEGATIVE (NEGATIVE) 01/23/17 10:15 U Cannabinoids Screen NEGATIVE (NEGATIVE) 01/23/17 10:15 RPR NONREACTIVE (NONREACTIVE) 01/21/17 21:16 - Physical Exam Vitals and I&O: Vital Signs Temp 97.4 F 01/23/17 12:00 Pulse 83 01/23/17 12:00 Resp 18 01/23/17 12:00 BP 129/85 01/23/17 12:00 Pulse Ox 95 01/23/17 12:00 Intake & Output 01/22/17 01/23/17 01/23/17 18:59 06:59 18:59 Intake Total 150 1000 370 Balance 150 1000 370 Weight (lbs) 130.635 kg Intake: Intake, IV Amount 150 1000 370 D5-0.45NS w/20 mEq KCL 1, 1000 270 000 ml @ 75 mls/hr IV . [id number] [facility] Rx#:[id number] KCL 20mEq/100mL Premix 20 100 meq In 100 ml @ 50 mls/ hr IV Q2H [facility] Rx#: [id number] KCL 20mEq/100mL Premix 20 100 meq In 100 ml @ 50 mls/ hr IV Q2H [facility] Rx#: [id number] cefTRIAXone 1 gm In 50 Sodium Chloride 0.9% 50 ml @ 100 mls/hr IV Q24HR [facility] Rx#:[id number] Active Medications: Current Medications Ceftriaxone Sodium 1 gm/ (Sodium Chloride) 50 mls @ 100 mls/hr IV Q24HR REPLACED BY [facility] Stop: 03/23/17 08:59 Last Admin: 01/23/17 12:25 Dose: 100 mls/hr Potassium Chloride/Dextrose/Sod Cl (D5-0.45ns W/20 Meq Kcl) 1,000 mls @ 75 mls/ hr IV .[id number] REPLACED BY [facility] Stop: 03/23/17 07:59 Last Admin: 01/23/17 10:16 Dose: 75 mls/hr Ondansetron HCl (Zofran) 4 mg IV Q6H PRN PRN Reason: Nausea / Vomiting Stop: 03/23/17 03:05 Pantoprazole Sodium (Protonix) 40 mg IVP DAILY REPLACED BY [facility] Stop: 03/23/17 08:59 Last Admin: 01/23/17 10:29 Dose: 40 mg General: Alert, Oriented x3, No acute distress HEENT: Atraumatic, PERRLA, EOMI Neck: Supple Cardiovascular: Regular rate, Normal S1, Normal S2 Abdomen: Bowel sounds Extremities: no Clubbing, no Cyanosis, no Edema - Procedures Procedures: Procedures Procedure Code Date CHALAZION EXCISION 08.09/17/05 REMOVE EYELID LESION [id number] 09/17/05 Assessment/Plan - Assessment Assessment: 21 YO MALE WITH PANCREATITIS LIKELY GALLSTONE 1.HIDA 2.SURGERY EVAL PER PCP/HOSPITALIST 3.CLEAR LIQUIDS
[2017-01-24] MEDS: D5-0.45NS w/20 mEq KCL 1,000 ML IV SCH ×2 (04:39→22:09)
--- NOTE | 2017-01-24 05:12 | General Progress Note ---
Subjective - Review of Systems Service Date: 01/24/17 Subjective: Patient was seen and examined. Patient symptoms appear to be improving. Patient to be scheduled for HIDA scan today. Objective - Results Result Diagrams: 01/23/17 06:48 01/23/17 06:48 Recent Labs: Laboratory Last Values WBC 12.3 Th/cmm (4.8-10.8) H 01/23/17 06:48 RBC 5.49 Mil/cmm (4.30-5.70) 01/23/17 06:48 Hgb 13.8 gm/dL (12-16) 01/23/17 06:48 Hct 41.6 % (41.0-60) 01/23/17 06:48 MCV 75.7 fl (80-99) L 01/23/17 06:48 MCH 25.1 pg (26.0-30.0) L 01/23/17 06:48 MCHC Differential 33.2 pg (28.0-36.0) 01/23/17 06:48 RDW 14.0 % (11.5-20.0) 01/23/17 06:48 Plt Count 215 Th/cmm (150-400) 01/23/17 06:48 MPV 9.0 fl 01/23/17 06:48 Neutrophils % 83.3 % (40.0-80.0) H 01/23/17 06:48 Lymphocytes % 11.9 % (20.0-50.0) L 01/23/17 06:48 Monocytes % 2.3 % (2.0-10.0) 01/23/17 06:48 Eosinophils % 1.9 % (0.0-5.0) 01/23/17 06:48 Basophils % 0.6 % (0.0-2.0) 01/23/17 06:48 Neutrophils (Manual) 94 % (40-80) H 01/21/17 21:16 Lymphocytes 4 % (20-50) L 01/21/17 21:16 Monocytes 2 % (2-10) 01/21/17 21:16 Platelet Estimate ADEQUATE (NORMAL) 01/21/17 21:16 Microcytosis 2+ 01/21/17 21:16 RBC Morph Micro Appear ABNORMAL (NORMAL) 01/21/17 21:16 PT 11.9 SECONDS (9.5-11.5) H 01/21/17 21:16 INR 1.13 (0.5-1.4) 01/21/17 21:16 Sodium 138 mEq/L (136-145) 01/23/17 06:48 Potassium 3.4 mEq/L (3.5-5.1) L 01/23/17 06:48 Chloride 107 mEq/L (98-107) 01/23/17 06:48 Carbon Dioxide 23.2 mEq/L (21.0-31.0) 01/23/17 06:48 Anion Gap 11.2 (7.0-16.0) 01/23/17 06:48 BUN 12 mg/dL (7-25) 01/23/17 06:48 Creatinine 0.6 mg/dL (0.7-1.3) L 01/23/17 06:48 Est GFR ( Amer) > 60.0 ml/min (>90) 01/23/17 06:48 Est GFR (Non-Af Amer) > 60.0 ml/min 01/23/17 06:48 BUN/Creatinine Ratio 20.0 01/23/17 06:48 Glucose 109 mg/dL (70-105) H 01/23/17 06:48 Whole Bld Lactic Acid 1.25 mmol/L (0.60-1.99) 01/21/17 21:16 Calcium 8.8 mg/dL (8.6-10.3) 01/23/17 06:48 Magnesium 2.1 mg/dL (1.9-2.7) 01/22/17 05:30 Total Bilirubin 0.8 mg/dL (0.3-1.0) 01/23/17 06:48 Direct Bilirubin 0.18 mg/dL (0.0-0.2) 01/23/17 06:48 AST 21 U/L (13-39) 01/23/17 06:48 ALT 58 U/L (7-52) H 01/23/17 06:48 Alkaline Phosphatase 94 U/L (34-104) 01/23/17 06:48 Troponin I < 0.01 ng/mL (0.01-0.05) L 01/21/17 21:16 Total Protein 7.2 gm/dL (6.0-8.3) 01/23/17 06:48 Albumin 4.0 gm/dL (4.2-5.5) L 01/23/17 06:48 Globulin 3.2 gm/dL 01/23/17 06:48 Albumin/Globulin Ratio 1.3 (1.0-1.8) 01/23/17 06:48 Triglycerides 73 mg/dL (<150) 01/22/17 13:15 Amylase 54 U/L (29-103) 01/23/17 08:15 Lipase 24 U/L (11-82) 01/23/17 06:48 TSH 1.75 uIU/ml (0.34-5.60) 01/21/17 21:16 Urine Source CLEAN C 01/23/17 10:15 Urine Color YELLOW 01/23/17 10:15 Urine Clarity HAZY (CLEAR) 01/23/17 10:15 Urine pH 6.0 (4.6 - 8.0) 01/23/17 10:15 Ur Specific [place] 1.025 (1.005-1.030) 01/23/17 10:15 Urine Protein 30 mg/dL (NEGATIVE) H 01/23/17 10:15 Urine Glucose (UA) NEGATIVE mg/dL (NEGATIVE) 01/23/17 10:15 Urine Ketones 40 mg/dL (NEGATIVE) H 01/23/17 10:15 Urine Blood NEGATIVE (NEGATIVE) 01/23/17 10:15 Urine Nitrate NEGATIVE (NEGATIVE) 01/23/17 10:15 Urine Bilirubin SMALL (NEGATIVE) H 01/23/17 10:15 Urine Urobilinogen 2.0 E.U./dL (0.2 - 1.0) 01/23/17 10:15 Ur Leukocyte Esterase NEGATIVE (NEGATIVE) 01/23/17 10:15 Urine RBC 0-2 /hpf (0-5) H 01/23/17 10:15 Urine WBC 2-5 /hpf (0-5) H 01/23/17 10:15 Ur Epithelial Cells FEW /lpf (FEW) 01/23/17 10:15 Urine Bacteria FEW /hpf (NONE SEEN) 01/23/17 10:15 Urine Mucus FEW /lpf (FEW) 01/23/17 10:15 Urine Opiates Screen NEGATIVE (NEGATIVE) 01/23/17 10:15 Urine Methadone Screen NEGATIVE (NEGATIVE) 01/23/17 10:15 Ur Barbiturates Screen NEGATIVE (NEGATIVE) 01/23/17 10:15 Ur Tricyclics Screen NEGATIVE (NEGATIVE) 01/23/17 10:15 Ur Phencyclidine Scrn NEGATIVE (NEGATIVE) 01/23/17 10:15 Amphetamines Screen NEGATIVE (NEGATIVE) 01/23/17 10:15 U Methamphetamines Scrn NEGATIVE (NEGATIVE) 01/23/17 10:15 U Benzodiazepines Scrn NEGATIVE (NEGATIVE) 01/23/17 10:15 U Cocaine Metab Screen NEGATIVE (NEGATIVE) 01/23/17 10:15 U Cannabinoids Screen NEGATIVE (NEGATIVE) 01/23/17 10:15 RPR NONREACTIVE (NONREACTIVE) 01/21/17 21:16 - Physical Exam Vitals and I&O: Vital Signs Temp 98.0 F 01/24/17 04:00 Pulse 93 01/24/17 04:00 Resp 18 01/24/17 04:00 BP 129/74 01/24/17 04:00 Pulse Ox 99 01/24/17 04:00 Intake & Output 01/23/17 01/23/17 01/24/17 06:59 18:59 06:59 Intake Total 7638 227 9144 Balance 2805 048 7708 Weight (lbs) 130.635 kg Intake: Intake, IV Amount 1218 184 4117 D5-0.45NS w/20 mEq KCL 1, 4927 097 5689 000 ml @ 75 mls/hr IV . [id number] [facility] Rx#:[id number] KCL 20mEq/100mL Premix 20 100 meq In 100 ml @ 50 mls/ hr IV Q2H [facility] Rx#: [id number] Other: Stool Characteristics Soft Formed Active Medications: Current Medications Ceftriaxone Sodium 1 gm/ (Sodium Chloride) 50 mls @ 100 mls/hr IV Q24HR [facility] Stop: 03/23/17 08:59 Last Admin: 01/23/17 12:25 Dose: 100 mls/hr Potassium Chloride/Dextrose/Sod Cl (D5-0.45ns W/20 Meq Kcl) 1,000 mls @ 75 mls/ hr IV .[id number] [facility] Stop: 03/23/17 07:59 Last Admin: 01/24/17 04:39 Dose: 75 mls/hr Ondansetron HCl (Zofran) 4 mg IV Q6H PRN PRN Reason: Nausea / Vomiting Stop: 03/23/17 03:05 Pantoprazole Sodium (Protonix) 40 mg IVP DAILY [facility] Stop: 03/23/17 08:59 Last Admin: 01/23/17 10:29 Dose: 40 mg General: Alert, Oriented x3, No acute distress HEENT: Atraumatic, PERRLA, EOMI Neck: Supple Cardiovascular: Regular rate, Normal S1, Normal S2 Abdomen: Bowel sounds Extremities: no Clubbing, no Cyanosis, no Edema - Procedures Procedures: Procedures Procedure Code Date CHALAZION EXCISION 10.2209/17/05 REMOVE EYELID LESION 14230 09/17/05 Assessment/Plan - Assessment Assessment: abdominal pain r/o gallstones r/o pancreatitis leukocytosis hypokalemia elevated LFTs elevated amylase and lipase - Plan Plan: GI consult for HIDA scan Surgical consult Rocephin 1gm IV repeat CBC,CMP, amylase, lipase D5 1/2NS w/ KCL 20 meq
[2017-01-24 06:24] LABS: AMYLASE SERUM 49 U/L (29-103); BUN - UREA NITROGEN 11 mg/dL (7-25); BUN/CREATININE RATIO 18.3; CALCIUM SERUM 8.9 mg/dL (8.6-10.3); CARBON DIOXIDE 19.2 mEq/L (21.0-31.0); CREATININE - SERUM 0.6 mg/dL (0.7-1.3); GLUCOSE 104 mg/dL (70-105); LIPASE 34 U/L (11-82)
[2017-01-24 06:39] LABS: % LYMPHOCYTES 19.4 % (20.0-50.0); % MONOCYTES 3.4 % (2.0-10.0); % NEUTROPHILS 74.2 % (40.0-80.0); HEMATOCRIT 42.6 % (41.0-60); HEMOGLOBIN 14.1 gm/dL (12-16); MEAN CELL VOLUME 75.3 fl (80-99); MEAN CORPUSCULAR HGB CONC 33.1 pg (28.0-36.0); MEAN PLATELET VOLUME 9.5 fl; NEUTROPHILE ABSOLUTE 12.3 Th/cmm (1.8-8.0); RED BLOOD COUNT 5.65 Mil/cmm (4.30-5.70); RED CELL DISTRIBUTION WIDTH 14.3 % (11.5-20.0)
[2017-01-24 06:41] LABS: WHITE BLOOD COUNT 16.6 Th/cmm (4.8-10.8)
[2017-01-24 06:42] LABS: PLATELET COUNT 141 Th/cmm (150-400)
[2017-01-24 06:54] LABS: ANION GAP 14.1 (7.0-16.0); CHLORIDE 109 mEq/L (98-107); POTASSIUM SERUM 4.3 mEq/L (3.5-5.1); SODIUM SERUM 138 mEq/L (136-145)
[2017-01-24] MEDS: cefTRIAXone 1 GM in Sodium Chloride 0.9% 50 ML IV SCH (08:47)
--- NOTE | 2017-01-24 10:12 | General Progress Note ---
Subjective - Review of Systems Service Date: 01/24/17 Events since last encounter: consult dictated await CHERRY Objective - Results Result Diagrams: 01/24/17 05:48 01/24/17 05:48 Recent Labs: Laboratory Last Values WBC 16.6 Th/cmm (4.8-10.8) H D 01/24/17 05:48 RBC 5.65 Mil/cmm (4.30-5.70) 01/24/17 05:48 Hgb 14.1 gm/dL (12-16) 01/24/17 05:48 Hct 42.6 % (41.0-60) 01/24/17 05:48 MCV 75.3 fl (80-99) L 01/24/17 05:48 MCH 25.0 pg (26.0-30.0) L 01/24/17 05:48 MCHC Differential 33.1 pg (28.0-36.0) 01/24/17 05:48 RDW 14.3 % (11.5-20.0) 01/24/17 05:48 Plt Count 141 Th/cmm (150-400) L D 01/24/17 05:48 MPV 9.5 fl 01/24/17 05:48 Neutrophils % 74.2 % (40.0-80.0) 01/24/17 05:48 Lymphocytes % 19.4 % (20.0-50.0) L 01/24/17 05:48 Monocytes % 3.4 % (2.0-10.0) 01/24/17 05:48 Eosinophils % 3.0 % (0.0-5.0) 01/24/17 05:48 Basophils % 0.0 % (0.0-2.0) 01/24/17 05:48 Neutrophils (Manual) 94 % (40-80) H 01/21/17 21:16 Lymphocytes 4 % (20-50) L 01/21/17 21:16 Monocytes 2 % (2-10) 01/21/17 21:16 Platelet Estimate ADEQUATE (NORMAL) 01/21/17 21:16 Microcytosis 2+ 01/21/17 21:16 RBC Morph Micro Appear ABNORMAL (NORMAL) 01/21/17 21:16 PT 11.9 SECONDS (9.5-11.5) H 01/21/17 21:16 INR 1.13 (0.5-1.4) 01/21/17 21:16 Sodium 138 mEq/L (136-145) 01/24/17 05:48 Potassium 4.3 mEq/L (3.5-5.1) 01/24/17 05:48 Chloride 109 mEq/L (98-107) H 01/24/17 05:48 Carbon Dioxide 19.2 mEq/L (21.0-31.0) L 01/24/17 05:48 Anion Gap 14.1 (7.0-16.0) 01/24/17 05:48 BUN 11 mg/dL (7-25) 01/24/17 05:48 Creatinine 0.6 mg/dL (0.7-1.3) L 01/24/17 05:48 Est GFR ( Amer) > 60.0 ml/min (>90) 01/24/17 05:48 Est GFR (Non-Af Amer) > 60.0 ml/min 01/24/17 05:48 BUN/Creatinine Ratio 18.3 01/24/17 05:48 Glucose 104 mg/dL (70-105) 01/24/17 05:48 Whole Bld Lactic Acid 1.25 mmol/L (0.60-1.99) 01/21/17 21:16 Calcium 8.9 mg/dL (8.6-10.3) 01/24/17 05:48 Magnesium 2.1 mg/dL (1.9-2.7) 01/22/17 05:30 Total Bilirubin 0.8 mg/dL (0.3-1.0) 01/23/17 06:48 Direct Bilirubin 0.18 mg/dL (0.0-0.2) 01/23/17 06:48 AST 21 U/L (13-39) 01/23/17 06:48 ALT 58 U/L (7-52) H 01/23/17 06:48 Alkaline Phosphatase 94 U/L (34-104) 01/23/17 06:48 Troponin I < 0.01 ng/mL (0.01-0.05) L 01/21/17 21:16 Total Protein 7.2 gm/dL (6.0-8.3) 01/23/17 06:48 Albumin 4.0 gm/dL (4.2-5.5) L 01/23/17 06:48 Globulin 3.2 gm/dL 01/23/17 06:48 Albumin/Globulin Ratio 1.3 (1.0-1.8) 01/23/17 06:48 Triglycerides 73 mg/dL (<150) 01/22/17 13:15 Amylase 49 U/L (29-103) 01/24/17 05:48 Lipase 34 U/L (11-82) 01/24/17 05:48 TSH 1.75 uIU/ml (0.34-5.60) 01/21/17 21:16 Urine Source CLEAN C 01/23/17 10:15 Urine Color YELLOW 01/23/17 10:15 Urine Clarity HAZY (CLEAR) 01/23/17 10:15 Urine pH 6.0 (4.6 - 8.0) 01/23/17 10:15 Ur Specific [place] 1.025 (1.005-1.030) 01/23/17 10:15 Urine Protein 30 mg/dL (NEGATIVE) H 01/23/17 10:15 Urine Glucose (UA) NEGATIVE mg/dL (NEGATIVE) 01/23/17 10:15 Urine Ketones 40 mg/dL (NEGATIVE) H 01/23/17 10:15 Urine Blood NEGATIVE (NEGATIVE) 01/23/17 10:15 Urine Nitrate NEGATIVE (NEGATIVE) 01/23/17 10:15 Urine Bilirubin SMALL (NEGATIVE) H 01/23/17 10:15 Urine Urobilinogen 2.0 E.U./dL (0.2 - 1.0) 01/23/17 10:15 Ur Leukocyte Esterase NEGATIVE (NEGATIVE) 01/23/17 10:15 Urine RBC 0-2 /hpf (0-5) H 01/23/17 10:15 Urine WBC 2-5 /hpf (0-5) H 01/23/17 10:15 Ur Epithelial Cells FEW /lpf (FEW) 01/23/17 10:15 Urine Bacteria FEW /hpf (NONE SEEN) 01/23/17 10:15 Urine Mucus FEW /lpf (FEW) 01/23/17 10:15 Urine Opiates Screen NEGATIVE (NEGATIVE) 01/23/17 10:15 Urine Methadone Screen NEGATIVE (NEGATIVE) 01/23/17 10:15 Ur Barbiturates Screen NEGATIVE (NEGATIVE) 01/23/17 10:15 Ur Tricyclics Screen NEGATIVE (NEGATIVE) 01/23/17 10:15 Ur Phencyclidine Scrn NEGATIVE (NEGATIVE) 01/23/17 10:15 Amphetamines Screen NEGATIVE (NEGATIVE) 01/23/17 10:15 U Methamphetamines Scrn NEGATIVE (NEGATIVE) 01/23/17 10:15 U Benzodiazepines Scrn NEGATIVE (NEGATIVE) 01/23/17 10:15 U Cocaine Metab Screen NEGATIVE (NEGATIVE) 01/23/17 10:15 U Cannabinoids Screen NEGATIVE (NEGATIVE) 01/23/17 10:15 RPR NONREACTIVE (NONREACTIVE) 01/21/17 21:16 - Physical Exam Vitals and I&O: Vital Signs Temp 97.5 F 01/24/17 07:36 Pulse 80 01/24/17 07:36 Resp 17 01/24/17 07:36 BP 117/61 01/24/17 07:36 Pulse Ox 97 01/24/17 07:36 Intake & Output 01/23/17 01/24/17 01/24/17 18:59 06:59 18:59 Intake Total 370 1445 Balance 370 1445 Weight (lbs) 128.004 kg Intake: Intake, IV Amount 370 1095 D5-0.45NS w/20 mEq KCL 1, 270 1045 000 ml @ 75 mls/hr IV . [id number] [facility] Rx#:[id number] KCL 20mEq/100mL Premix 20 100 meq In 100 ml @ 50 mls/ hr IV Q2H [facility] Rx#: [id number] cefTRIAXone 1 gm In 50 Sodium Chloride 0.9% 50 ml @ 100 mls/hr IV Q24HR [facility] Rx#:[id number] Oral 350 Other: # Voids 2 # Bowel Movements 1 Stool Characteristics Soft Formed Active Medications: Current Medications Ceftriaxone Sodium 1 gm/ (Sodium Chloride) 50 mls @ 100 mls/hr IV Q24HR [facility] Stop: 03/23/17 08:59 Last Admin: 01/24/17 08:47 Dose: 100 mls/hr Potassium Chloride/Dextrose/Sod Cl (D5-0.45ns W/20 Meq Kcl) 1,000 mls @ 75 mls/ hr IV .[id number] [facility] Stop: 03/23/17 07:59 Last Infusion: 01/24/17 05:15 Dose: 75 mls/hr Ondansetron HCl (Zofran) 4 mg IV Q6H PRN PRN Reason: Nausea / Vomiting Stop: 03/23/17 03:05 Pantoprazole Sodium (Protonix) 40 mg IVP DAILY [facility] Stop: 03/23/17 08:59 Last Admin: 01/24/17 08:47 Dose: 40 mg General: Alert, Oriented x3, No acute distress HEENT: Atraumatic, PERRLA, EOMI Neck: Supple Cardiovascular: Regular rate, Normal S1, Normal S2 Abdomen: Bowel sounds Extremities: no Clubbing, no Cyanosis, no Edema - Procedures Procedures: Procedures Procedure Code Date CHALAZION EXCISION 08.09/17/05 REMOVE EYELID LESION 42005 09/17/05
--- NOTE | 2017-01-24 10:50 | History & Physical ---
ADMIT DATE: 01/24/2017 SURGICAL CONSULTATION REFERRING PHYSICIAN: Dr. Tovar. REASON FOR CONSULTATION: Abdominal pain. Thank you for referring this patient to me. HISTORY OF PRESENT ILLNESS: This is a 21-year-old obese, mentally challenged male who comes in because of 3-day history of abdominal pain associated with nausea and vomiting 2 days prior. WBC elevated at 20,000 with elevation also of the liver function test as well as amylase and lipase. The mother claims that he is ambulatory but drinks alcohol only on special occasions, not on a regular basis. A CT scan of the abdomen showed nonspecific right upper quadrant mesenteric edema, representing either gastritis or pancreatitis. The patient has been seen by Dr. Castro in GI consultation. Ultrasound of the abdomen shows possible gallstones. HIDA scan has been ordered, results are awaited. PHYSICAL EXAMINATION: The patient is morbidly obese. There is moderate tenderness in right upper quadrant. He answers to questions appropriately. PLAN: We will await results of the HIDA scan. Thank you for this consultation. We will follow with you. [facility]# [id number]
--- NOTE | 2017-01-25 06:01 | General Progress Note ---
Subjective - Review of Systems Service Date: 01/25/17 Subjective: Awake, alert, afebrile. WBC's 16K. Patient completed HIDA yesterday awaiting official report. Objective - Results Result Diagrams: 01/24/17 05:48 01/24/17 05:48 Recent Labs: Laboratory Last Values WBC 16.6 Th/cmm (4.8-10.8) H D 01/24/17 05:48 RBC 5.65 Mil/cmm (4.30-5.70) 01/24/17 05:48 Hgb 14.1 gm/dL (12-16) 01/24/17 05:48 Hct 42.6 % (41.0-60) 01/24/17 05:48 MCV 75.3 fl (80-99) L 01/24/17 05:48 MCH 25.0 pg (26.0-30.0) L 01/24/17 05:48 MCHC Differential 33.1 pg (28.0-36.0) 01/24/17 05:48 RDW 14.3 % (11.5-20.0) 01/24/17 05:48 Plt Count 141 Th/cmm (150-400) L D 01/24/17 05:48 MPV 9.5 fl 01/24/17 05:48 Neutrophils % 74.2 % (40.0-80.0) 01/24/17 05:48 Lymphocytes % 19.4 % (20.0-50.0) L 01/24/17 05:48 Monocytes % 3.4 % (2.0-10.0) 01/24/17 05:48 Eosinophils % 3.0 % (0.0-5.0) 01/24/17 05:48 Basophils % 0.0 % (0.0-2.0) 01/24/17 05:48 Neutrophils (Manual) 94 % (40-80) H 01/21/17 21:16 Lymphocytes 4 % (20-50) L 01/21/17 21:16 Monocytes 2 % (2-10) 01/21/17 21:16 Platelet Estimate ADEQUATE (NORMAL) 01/21/17 21:16 Microcytosis 2+ 01/21/17 21:16 RBC Morph Micro Appear ABNORMAL (NORMAL) 01/21/17 21:16 PT 11.9 SECONDS (9.5-11.5) H 01/21/17 21:16 INR 1.13 (0.5-1.4) 01/21/17 21:16 Sodium 138 mEq/L (136-145) 01/24/17 05:48 Potassium 4.3 mEq/L (3.5-5.1) 01/24/17 05:48 Chloride 109 mEq/L (98-107) H 01/24/17 05:48 Carbon Dioxide 19.2 mEq/L (21.0-31.0) L 01/24/17 05:48 Anion Gap 14.1 (7.0-16.0) 01/24/17 05:48 BUN 11 mg/dL (7-25) 01/24/17 05:48 Creatinine 0.6 mg/dL (0.7-1.3) L 01/24/17 05:48 Est GFR ( Amer) > 60.0 ml/min (>90) 01/24/17 05:48 Est GFR (Non-Af Amer) > 60.0 ml/min 01/24/17 05:48 BUN/Creatinine Ratio 18.3 01/24/17 05:48 Glucose 104 mg/dL (70-105) 01/24/17 05:48 Whole Bld Lactic Acid 1.25 mmol/L (0.60-1.99) 01/21/17 21:16 Calcium 8.9 mg/dL (8.6-10.3) 01/24/17 05:48 Magnesium 2.1 mg/dL (1.9-2.7) 01/22/17 05:30 Total Bilirubin 0.8 mg/dL (0.3-1.0) 01/23/17 06:48 Direct Bilirubin 0.18 mg/dL (0.0-0.2) 01/23/17 06:48 AST 21 U/L (13-39) 01/23/17 06:48 ALT 58 U/L (7-52) H 01/23/17 06:48 Alkaline Phosphatase 94 U/L (34-104) 01/23/17 06:48 Troponin I < 0.01 ng/mL (0.01-0.05) L 01/21/17 21:16 Total Protein 7.2 gm/dL (6.0-8.3) 01/23/17 06:48 Albumin 4.0 gm/dL (4.2-5.5) L 01/23/17 06:48 Globulin 3.2 gm/dL 01/23/17 06:48 Albumin/Globulin Ratio 1.3 (1.0-1.8) 01/23/17 06:48 Triglycerides 73 mg/dL (<150) 01/22/17 13:15 Amylase 49 U/L (29-103) 01/24/17 05:48 Lipase 34 U/L (11-82) 01/24/17 05:48 TSH 1.75 uIU/ml (0.34-5.60) 01/21/17 21:16 Urine Source CLEAN C 01/23/17 10:15 Urine Color YELLOW 01/23/17 10:15 Urine Clarity HAZY (CLEAR) 01/23/17 10:15 Urine pH 6.0 (4.6 - 8.0) 01/23/17 10:15 Ur Specific [place] 1.025 (1.005-1.030) 01/23/17 10:15 Urine Protein 30 mg/dL (NEGATIVE) H 01/23/17 10:15 Urine Glucose (UA) NEGATIVE mg/dL (NEGATIVE) 01/23/17 10:15 Urine Ketones 40 mg/dL (NEGATIVE) H 01/23/17 10:15 Urine Blood NEGATIVE (NEGATIVE) 01/23/17 10:15 Urine Nitrate NEGATIVE (NEGATIVE) 01/23/17 10:15 Urine Bilirubin SMALL (NEGATIVE) H 01/23/17 10:15 Urine Urobilinogen 2.0 E.U./dL (0.2 - 1.0) 01/23/17 10:15 Ur Leukocyte Esterase NEGATIVE (NEGATIVE) 01/23/17 10:15 Urine RBC 0-2 /hpf (0-5) H 01/23/17 10:15 Urine WBC 2-5 /hpf (0-5) H 01/23/17 10:15 Ur Epithelial Cells FEW /lpf (FEW) 01/23/17 10:15 Urine Bacteria FEW /hpf (NONE SEEN) 01/23/17 10:15 Urine Mucus FEW /lpf (FEW) 01/23/17 10:15 Urine Opiates Screen NEGATIVE (NEGATIVE) 01/23/17 10:15 Urine Methadone Screen NEGATIVE (NEGATIVE) 01/23/17 10:15 Ur Barbiturates Screen NEGATIVE (NEGATIVE) 01/23/17 10:15 Ur Tricyclics Screen NEGATIVE (NEGATIVE) 01/23/17 10:15 Ur Phencyclidine Scrn NEGATIVE (NEGATIVE) 01/23/17 10:15 Amphetamines Screen NEGATIVE (NEGATIVE) 01/23/17 10:15 U Methamphetamines Scrn NEGATIVE (NEGATIVE) 01/23/17 10:15 U Benzodiazepines Scrn NEGATIVE (NEGATIVE) 01/23/17 10:15 U Cocaine Metab Screen NEGATIVE (NEGATIVE) 01/23/17 10:15 U Cannabinoids Screen NEGATIVE (NEGATIVE) 01/23/17 10:15 RPR NONREACTIVE (NONREACTIVE) 01/21/17 21:16 - Physical Exam Vitals and I&O: Vital Signs Temp 98.2 F 01/24/17 15:00 Pulse 72 01/24/17 15:00 Resp 18 01/24/17 20:00 BP 121/59 01/24/17 15:00 Pulse Ox 97 01/24/17 15:00 Intake & Output 01/24/17 01/24/17 01/25/17 06:59 18:59 06:59 Intake Total 1445 955 Balance 1445 955 Weight (lbs) 128.004 kg 128.004 kg Intake: Intake, IV Amount 1095 955 D5-0.45NS w/20 mEq KCL 1, 1045 955 000 ml @ 75 mls/hr IV . [id number] [facility] Rx#:[id number] cefTRIAXone 1 gm In 50 Sodium Chloride 0.9% 50 ml @ 100 mls/hr IV Q24HR [facility] Rx#:[id number] Oral 350 Other: # Voids 2 3 # Bowel Movements 1 0 Stool Characteristics Soft Soft Formed Formed Active Medications: Current Medications Ceftriaxone Sodium 1 gm/ (Sodium Chloride) 50 mls @ 100 mls/hr IV Q24HR [facility] Stop: 03/23/17 08:59 Last Admin: 01/24/17 08:47 Dose: 100 mls/hr Potassium Chloride/Dextrose/Sod Cl (D5-0.45ns W/20 Meq Kcl) 1,000 mls @ 75 mls/ hr IV .[id number] [facility] Stop: 03/23/17 07:59 Last Admin: 01/24/17 22:09 Dose: 75 mls/hr Ondansetron HCl (Zofran) 4 mg IV Q6H PRN PRN Reason: Nausea / Vomiting Stop: 03/23/17 03:05 Pantoprazole Sodium (Protonix) 40 mg IVP DAILY [facility]OR[facility] Stop: 03/23/17 08:59 Last Admin: 01/24/17 08:47 Dose: 40 mg General: Alert, Oriented x3, No acute distress HEENT: Atraumatic, PERRLA, EOMI Neck: Supple Cardiovascular: Regular rate, Normal S1, Normal S2 Abdomen: Bowel sounds Extremities: no Clubbing, no Cyanosis, no Edema - Procedures Procedures: Procedures Procedure Code Date CHALAZION EXCISION 08.09/17/05 REMOVE EYELID LESION 83811 09/17/05 Assessment/Plan - Assessment Assessment: abdominal pain r/o gallstones r/o pancreatitis leukocytosis hypokalemia elevated LFTs elevated amylase and lipase - Plan Plan: GI consult HIDA scan done Surgical consult Rocephin 1gm IV repeat CBC,CMP, amylase, lipase D5 1/2NS @ 75cc/hr Nutritional Asmnt/Malnutr-PDOC - Dietary Evaluation Malnutrition Findings (Please click <Entered> for more info): Nutritional Asmnt/Malnutrition Start: 01/24/17 13: 08 Text: Status: Complete Freq: Document 01/24/17 13:59 LCHENG (Rec: 01/24/17 14:25 LCHENG [email or web address]) Nutritional Asmnt/Malnutrition Patient General Information Nutritional Screening High Risk Diagnosis vomiting, dehydration Pertinent Medical Hx/Surgical Hx seizure, mentally challenged Subjective Information Pt was admited for N/V and abdominal pain. Pt seen sitting on bed, alert, only Congolese speaking. GREGG Meneses helped to translate. Pt denied N/V today, reported he noticed wt gain during the recent months. Pt appeared obese. Per notes, pt is having HIDA scan and wallow eval today. Current Diet Order/ Nutrition Support NPO Pertinent Medications Kcl IV Pertinent Labs 01/24 Cl 109H, Cr 0.6L,Glu 104 01/23 K 3.4L, Cr 0.6L, Glu 109H, ALT 58H, Alb 4.0L Nutritional Hx/Data Height 1.73 m Height (Calculated Centimeters) 172.7 Current Weight (lbs) 128.004 kg Weight (Calculated Kilograms) 128.0 Weight (Calculated Grams) 199760.8 [place] Body Weight 154 % [place] Body Weight 183 Body Mass Index (BMI) 42.9 Recent Weight Change Yes Weight Status Obese GI Symptoms GI Symptoms None Last BM 01/23 Usual diet at home cook at home, likes burger per pt Skin Integrity/Comment: intact Estimated Nutritional Goals BEE in Kcals: Adj wt of IBW Calories/Kcals/Kg adj wt 84.5 Kcals Calculated 2112-2535kcal (25-30kcal/kg) Protein: Adj wt of IBW Protein g/k.8-1 Protein Calculated 68-85 Fluid: ml 7272-6502 Nutritional Problem 1. Problem Problem obesity Etiology ?imbalanced meal, excessive calorie intake Signs/Symptoms: BMI 42.9 Malnutrition Alert Protein-Calorie Malnutrition N/A Is there a minimum of two criteria No selected? Query Text:Check all the applicable criteria. A minimum of two criteria are recommended for diagnosis of either severe or non-severe malnutrition. Intervention/Recommendation Comments 1. monitor NPO status. 2. if pt is approriate for oral diet, will recommend regular diet with texture as ST recommend. 3. monitor wt weekly, labs and skin integrity 4. F/U as high risk in 2-3 days, 01/26-01/27 Expected Outcomes/Goals Expected Outcomes/Goals 1. Ptto meet at least 75% of nutritional needs in 2-3 days 2. wt stability, skin to remain intact, labs to approach WNL, show no sign/ synptoms of dehydration
--- NOTE | 2017-01-25 08:18 | Diagnostic Imaging Report ---
Exam: HIDA scan HISTORY: Cholecystitis Findings: Utilizing 5.1 mCi of technetium 99 M Choletec examination of liver and biliary tree was obtained No prior studies available comparison. Findings The study demonstrates normal uptake of radiopharmaceutical throughout the liver parenchyma. The common bile duct is normal. Normal excretion of radiopharmaceutical into the small bowel appreciated The gallbladder is not visualized on delayed images. IMPRESSION: Obstruction of cystic duct, non visualization of the gallbladder, cholecystitis cannot be excluded. Clinical correlation recommended.
[2017-01-25] MEDS: cefTRIAXone 1 GM in Sodium Chloride 0.9% 50 ML IV SCH (08:46)
--- NOTE | 2017-01-25 09:09 | General Progress Note ---
Subjective - Review of Systems Service Date: 01/25/17 Events since last encounter: HIDA scan non-visualization of GB persistent leukocytosis, denies pain will need cholecystectomy, not emergent Objective - Results Result Diagrams: 01/24/17 05:48 01/24/17 05:48 Recent Labs: Laboratory Last Values WBC 16.6 Th/cmm (4.8-10.8) H D 01/24/17 05:48 RBC 5.65 Mil/cmm (4.30-5.70) 01/24/17 05:48 Hgb 14.1 gm/dL (12-16) 01/24/17 05:48 Hct 42.6 % (41.0-60) 01/24/17 05:48 MCV 75.3 fl (80-99) L 01/24/17 05:48 MCH 25.0 pg (26.0-30.0) L 01/24/17 05:48 MCHC Differential 33.1 pg (28.0-36.0) 01/24/17 05:48 RDW 14.3 % (11.5-20.0) 01/24/17 05:48 Plt Count 141 Th/cmm (150-400) L D 01/24/17 05:48 MPV 9.5 fl 01/24/17 05:48 Neutrophils % 74.2 % (40.0-80.0) 01/24/17 05:48 Lymphocytes % 19.4 % (20.0-50.0) L 01/24/17 05:48 Monocytes % 3.4 % (2.0-10.0) 01/24/17 05:48 Eosinophils % 3.0 % (0.0-5.0) 01/24/17 05:48 Basophils % 0.0 % (0.0-2.0) 01/24/17 05:48 Neutrophils (Manual) 94 % (40-80) H 01/21/17 21:16 Lymphocytes 4 % (20-50) L 01/21/17 21:16 Monocytes 2 % (2-10) 01/21/17 21:16 Platelet Estimate ADEQUATE (NORMAL) 01/21/17 21:16 Microcytosis 2+ 01/21/17 21:16 RBC Morph Micro Appear ABNORMAL (NORMAL) 01/21/17 21:16 PT 11.9 SECONDS (9.5-11.5) H 01/21/17 21:16 INR 1.13 (0.5-1.4) 01/21/17 21:16 Sodium 138 mEq/L (136-145) 01/24/17 05:48 Potassium 4.3 mEq/L (3.5-5.1) 01/24/17 05:48 Chloride 109 mEq/L (98-107) H 01/24/17 05:48 Carbon Dioxide 19.2 mEq/L (21.0-31.0) L 01/24/17 05:48 Anion Gap 14.1 (7.0-16.0) 01/24/17 05:48 BUN 11 mg/dL (7-25) 01/24/17 05:48 Creatinine 0.6 mg/dL (0.7-1.3) L 01/24/17 05:48 Est GFR ( Amer) > 60.0 ml/min (>90) 01/24/17 05:48 Est GFR (Non-Af Amer) > 60.0 ml/min 01/24/17 05:48 BUN/Creatinine Ratio 18.3 01/24/17 05:48 Glucose 104 mg/dL (70-105) 01/24/17 05:48 Whole Bld Lactic Acid 1.25 mmol/L (0.60-1.99) 01/21/17 21:16 Calcium 8.9 mg/dL (8.6-10.3) 01/24/17 05:48 Magnesium 2.1 mg/dL (1.9-2.7) 01/22/17 05:30 Total Bilirubin 0.8 mg/dL (0.3-1.0) 01/23/17 06:48 Direct Bilirubin 0.18 mg/dL (0.0-0.2) 01/23/17 06:48 AST 21 U/L (13-39) 01/23/17 06:48 ALT 58 U/L (7-52) H 01/23/17 06:48 Alkaline Phosphatase 94 U/L (34-104) 01/23/17 06:48 Troponin I < 0.01 ng/mL (0.01-0.05) L 01/21/17 21:16 Total Protein 7.2 gm/dL (6.0-8.3) 01/23/17 06:48 Albumin 4.0 gm/dL (4.2-5.5) L 01/23/17 06:48 Globulin 3.2 gm/dL 01/23/17 06:48 Albumin/Globulin Ratio 1.3 (1.0-1.8) 01/23/17 06:48 Triglycerides 73 mg/dL (<150) 01/22/17 13:15 Amylase 49 U/L (29-103) 01/24/17 05:48 Lipase 34 U/L (11-82) 01/24/17 05:48 TSH 1.75 uIU/ml (0.34-5.60) 01/21/17 21:16 Urine Source CLEAN C 01/23/17 10:15 Urine Color YELLOW 01/23/17 10:15 Urine Clarity HAZY (CLEAR) 01/23/17 10:15 Urine pH 6.0 (4.6 - 8.0) 01/23/17 10:15 Ur Specific [place] 1.025 (1.005-1.030) 01/23/17 10:15 Urine Protein 30 mg/dL (NEGATIVE) H 01/23/17 10:15 Urine Glucose (UA) NEGATIVE mg/dL (NEGATIVE) 01/23/17 10:15 Urine Ketones 40 mg/dL (NEGATIVE) H 01/23/17 10:15 Urine Blood NEGATIVE (NEGATIVE) 01/23/17 10:15 Urine Nitrate NEGATIVE (NEGATIVE) 01/23/17 10:15 Urine Bilirubin SMALL (NEGATIVE) H 01/23/17 10:15 Urine Urobilinogen 2.0 E.U./dL (0.2 - 1.0) 01/23/17 10:15 Ur Leukocyte Esterase NEGATIVE (NEGATIVE) 01/23/17 10:15 Urine RBC 0-2 /hpf (0-5) H 01/23/17 10:15 Urine WBC 2-5 /hpf (0-5) H 01/23/17 10:15 Ur Epithelial Cells FEW /lpf (FEW) 01/23/17 10:15 Urine Bacteria FEW /hpf (NONE SEEN) 01/23/17 10:15 Urine Mucus FEW /lpf (FEW) 01/23/17 10:15 Urine Opiates Screen NEGATIVE (NEGATIVE) 01/23/17 10:15 Urine Methadone Screen NEGATIVE (NEGATIVE) 01/23/17 10:15 Ur Barbiturates Screen NEGATIVE (NEGATIVE) 01/23/17 10:15 Ur Tricyclics Screen NEGATIVE (NEGATIVE) 01/23/17 10:15 Ur Phencyclidine Scrn NEGATIVE (NEGATIVE) 01/23/17 10:15 Amphetamines Screen NEGATIVE (NEGATIVE) 01/23/17 10:15 U Methamphetamines Scrn NEGATIVE (NEGATIVE) 01/23/17 10:15 U Benzodiazepines Scrn NEGATIVE (NEGATIVE) 01/23/17 10:15 U Cocaine Metab Screen NEGATIVE (NEGATIVE) 01/23/17 10:15 U Cannabinoids Screen NEGATIVE (NEGATIVE) 01/23/17 10:15 RPR NONREACTIVE (NONREACTIVE) 01/21/17 21:16 - Physical Exam Vitals and I&O: Vital Signs Temp 98.2 F 01/24/17 15:00 Pulse 72 01/24/17 15:00 Resp 18 01/24/17 20:00 BP 121/59 01/24/17 15:00 Pulse Ox 97 01/24/17 15:00 Intake & Output 01/24/17 01/25/17 01/25/17 18:59 06:59 18:59 Intake Total 1005 Balance 1005 Weight (lbs) 128.004 kg Intake: Intake, IV Amount 1005 D5-0.45NS w/20 mEq KCL 1, 955 000 ml @ 75 mls/hr IV . [id number] [facility] Rx#:[id number] cefTRIAXone 1 gm In 50 Sodium Chloride 0.9% 50 ml @ 100 mls/hr IV Q24HR [facility] Rx#:[id number] Other: # Voids 3 # Bowel Movements 0 Stool Characteristics Soft Formed Active Medications: Current Medications Ceftriaxone Sodium 1 gm/ (Sodium Chloride) 50 mls @ 100 mls/hr IV Q24HR [facility] Stop: 03/23/17 08:59 Last Admin: 01/25/17 08:46 Dose: 100 mls/hr Potassium Chloride/Dextrose/Sod Cl (D5-0.45ns W/20 Meq Kcl) 1,000 mls @ 75 mls/ hr IV .[id number] [facility] Stop: 03/23/17 07:59 Last Admin: 01/24/17 22:09 Dose: 75 mls/hr Ondansetron HCl (Zofran) 4 mg IV Q6H PRN PRN Reason: Nausea / Vomiting Stop: 03/23/17 03:05 Pantoprazole Sodium (Protonix) 40 mg IVP DAILY [facility] Stop: 03/23/17 08:59 Last Admin: 01/25/17 08:46 Dose: 40 mg General: Alert, Oriented x3, No acute distress HEENT: Atraumatic, PERRLA, EOMI Neck: Supple Cardiovascular: Regular rate, Normal S1, Normal S2 Abdomen: Bowel sounds Extremities: no Clubbing, no Cyanosis, no Edema - Procedures Procedures: Procedures Procedure Code Date CHALAZION EXCISION 10.2209/17/05 REMOVE EYELID LESION 09431 09/17/05 Nutritional Asmnt/Malnutr-PDOC - Dietary Evaluation Malnutrition Findings (Please click <Entered> for more info): Nutritional Asmnt/Malnutrition Start: 01/24/17 13: 08 Text: Status: Complete Freq: Document 01/24/17 13:59 LCHENG (Rec: 01/24/17 14:25 LCHENG [email or web address]) Nutritional Asmnt/Malnutrition Patient General Information Nutritional Screening High Risk Diagnosis vomiting, dehydration Pertinent Medical Hx/Surgical Hx seizure, mentally challenged Subjective Information Pt was admited for N/V and abdominal pain. Pt seen sitting on bed, alert, only [place]ian speaking. GREGG Meneses helped to translate. Pt denied N/V today, reported he noticed wt gain during the recent months. Pt appeared obese. Per notes, pt is having HIDA scan and wallow eval today. Current Diet Order/ Nutrition Support NPO Pertinent Medications Kcl IV Pertinent Labs 01/24 Cl 109H, Cr 0.6L,Glu 104 01/23 K 3.4L, Cr 0.6L, Glu 109H, ALT 58H, Alb 4.0L Nutritional Hx/Data Height 1.73 m Height (Calculated Centimeters) 172.7 Current Weight (lbs) 128.004 kg Weight (Calculated Kilograms) 128.0 Weight (Calculated Grams) 906619.8 [place] Body Weight 154 % [place] Body Weight 183 Body Mass Index (BMI) 42.9 Recent Weight Change Yes Weight Status Obese GI Symptoms GI Symptoms None Last BM 01/23 Usual diet at home cook at home, likes burger per pt Skin Integrity/Comment: intact Estimated Nutritional Goals BEE in Kcals: Adj wt of IBW Calories/Kcals/Kg adj wt 84.5 Kcals Calculated 2113-2535kcal (25-30kcal/kg) Protein: Adj wt of IBW Protein g/k.8-1 Protein Calculated 68-85 Fluid: ml 6611-1785 Nutritional Problem 1. Problem Problem obesity Etiology ?imbalanced meal, excessive calorie intake Signs/Symptoms: BMI 42.9 Malnutrition Alert Protein-Calorie Malnutrition N/A Is there a minimum of two criteria No selected? Query Text:Check all the applicable criteria. A minimum of two criteria are recommended for diagnosis of either severe or non-severe malnutrition. Intervention/Recommendation Comments 1. monitor NPO status. 2. if pt is approriate for oral diet, will recommend regular diet with texture as ST recommend. 3. monitor wt weekly, labs and skin integrity 4. F/U as high risk in 2-3 days, 01/26-01/27 Expected Outcomes/Goals Expected Outcomes/Goals 1. Ptto meet at least 75% of nutritional needs in 2-3 days 2. wt stability, skin to remain intact, labs to approach WNL, show no sign/ synptoms of dehydration
[2017-01-25] MEDS ORDERED: Probiotic Screen MC PRN (11:23)
[2017-01-25] MEDS: D5-0.45NS w/20 mEq KCL 1,000 ML IV SCH (12:34)
--- NOTE | 2017-01-25 17:26 | Progress Notes ---
DATE: 01/25/2017 SUBJECTIVE: No acute events overnight. Denies significant abdominal pain. Temperature 97.5, pulse 79, respirations 18, blood pressure 132/77. PHYSICAL EXAMINATION: GENERAL: No acute distress. CARDIOVASCULAR: Regular rhythm. ABDOMEN: Obese, soft. EXTREMITIES: No deformities. LABORATORY DATA: White count 16.6, hemoglobin is 14.1, platelets are 141, total bilirubin 0.8, AST is 21, ALT is 58. HIDA scan is positive for cystic duct obstruction. ASSESSMENT AND PLAN: A 21-year-old male with cholecystitis. The patient is being followed by surgery. The patient has a positive HIDA scan. Plan for possible cholecystectomy and discussion of surgery. At this point, there does not appear to be any common bile duct obstruction given the normal bilirubin. JOB# [id number]
--- NOTE | 2017-01-26 06:04 | General Progress Note ---
Subjective - Review of Systems Service Date: 01/26/17 Subjective: Awake, alert, afebrile. WBC's 16K. HIDA report noted. on clear liquid diet. Objective - Results Result Diagrams: 01/24/17 05:48 01/24/17 05:48 Recent Labs: Laboratory Last Values WBC 16.6 Th/cmm (4.8-10.8) H D 01/24/17 05:48 RBC 5.65 Mil/cmm (4.30-5.70) 01/24/17 05:48 Hgb 14.1 gm/dL (12-16) 01/24/17 05:48 Hct 42.6 % (41.0-60) 01/24/17 05:48 MCV 75.3 fl (80-99) L 01/24/17 05:48 MCH 25.0 pg (26.0-30.0) L 01/24/17 05:48 MCHC Differential 33.1 pg (28.0-36.0) 01/24/17 05:48 RDW 14.3 % (11.5-20.0) 01/24/17 05:48 Plt Count 141 Th/cmm (150-400) L D 01/24/17 05:48 MPV 9.5 fl 01/24/17 05:48 Neutrophils % 74.2 % (40.0-80.0) 01/24/17 05:48 Lymphocytes % 19.4 % (20.0-50.0) L 01/24/17 05:48 Monocytes % 3.4 % (2.0-10.0) 01/24/17 05:48 Eosinophils % 3.0 % (0.0-5.0) 01/24/17 05:48 Basophils % 0.0 % (0.0-2.0) 01/24/17 05:48 Neutrophils (Manual) 94 % (40-80) H 01/21/17 21:16 Lymphocytes 4 % (20-50) L 01/21/17 21:16 Monocytes 2 % (2-10) 01/21/17 21:16 Platelet Estimate ADEQUATE (NORMAL) 01/21/17 21:16 Microcytosis 2+ 01/21/17 21:16 RBC Morph Micro Appear ABNORMAL (NORMAL) 01/21/17 21:16 PT 11.9 SECONDS (9.5-11.5) H 01/21/17 21:16 INR 1.13 (0.5-1.4) 01/21/17 21:16 Sodium 138 mEq/L (136-145) 01/24/17 05:48 Potassium 4.3 mEq/L (3.5-5.1) 01/24/17 05:48 Chloride 109 mEq/L (98-107) H 01/24/17 05:48 Carbon Dioxide 19.2 mEq/L (21.0-31.0) L 01/24/17 05:48 Anion Gap 14.1 (7.0-16.0) 01/24/17 05:48 BUN 11 mg/dL (7-25) 01/24/17 05:48 Creatinine 0.6 mg/dL (0.7-1.3) L 01/24/17 05:48 Est GFR ( Amer) > 60.0 ml/min (>90) 01/24/17 05:48 Est GFR (Non-Af Amer) > 60.0 ml/min 01/24/17 05:48 BUN/Creatinine Ratio 18.3 01/24/17 05:48 Glucose 104 mg/dL (70-105) 01/24/17 05:48 Whole Bld Lactic Acid 1.25 mmol/L (0.60-1.99) 01/21/17 21:16 Calcium 8.9 mg/dL (8.6-10.3) 01/24/17 05:48 Magnesium 2.1 mg/dL (1.9-2.7) 01/22/17 05:30 Total Bilirubin 0.8 mg/dL (0.3-1.0) 01/23/17 06:48 Direct Bilirubin 0.18 mg/dL (0.0-0.2) 01/23/17 06:48 AST 21 U/L (13-39) 01/23/17 06:48 ALT 58 U/L (7-52) H 01/23/17 06:48 Alkaline Phosphatase 94 U/L (34-104) 01/23/17 06:48 Troponin I < 0.01 ng/mL (0.01-0.05) L 01/21/17 21:16 Total Protein 7.2 gm/dL (6.0-8.3) 01/23/17 06:48 Albumin 4.0 gm/dL (4.2-5.5) L 01/23/17 06:48 Globulin 3.2 gm/dL 01/23/17 06:48 Albumin/Globulin Ratio 1.3 (1.0-1.8) 01/23/17 06:48 Triglycerides 73 mg/dL (<150) 01/22/17 13:15 Amylase 49 U/L (29-103) 01/24/17 05:48 Lipase 34 U/L (11-82) 01/24/17 05:48 TSH 1.75 uIU/ml (0.34-5.60) 01/21/17 21:16 Urine Source CLEAN C 01/23/17 10:15 Urine Color YELLOW 01/23/17 10:15 Urine Clarity HAZY (CLEAR) 01/23/17 10:15 Urine pH 6.0 (4.6 - 8.0) 01/23/17 10:15 Ur Specific [place] 1.025 (1.005-1.030) 01/23/17 10:15 Urine Protein 30 mg/dL (NEGATIVE) H 01/23/17 10:15 Urine Glucose (UA) NEGATIVE mg/dL (NEGATIVE) 01/23/17 10:15 Urine Ketones 40 mg/dL (NEGATIVE) H 01/23/17 10:15 Urine Blood NEGATIVE (NEGATIVE) 01/23/17 10:15 Urine Nitrate NEGATIVE (NEGATIVE) 01/23/17 10:15 Urine Bilirubin SMALL (NEGATIVE) H 01/23/17 10:15 Urine Urobilinogen 2.0 E.U./dL (0.2 - 1.0) 01/23/17 10:15 Ur Leukocyte Esterase NEGATIVE (NEGATIVE) 01/23/17 10:15 Urine RBC 0-2 /hpf (0-5) H 01/23/17 10:15 Urine WBC 2-5 /hpf (0-5) H 01/23/17 10:15 Ur Epithelial Cells FEW /lpf (FEW) 01/23/17 10:15 Urine Bacteria FEW /hpf (NONE SEEN) 01/23/17 10:15 Urine Mucus FEW /lpf (FEW) 01/23/17 10:15 Urine Opiates Screen NEGATIVE (NEGATIVE) 01/23/17 10:15 Urine Methadone Screen NEGATIVE (NEGATIVE) 01/23/17 10:15 Ur Barbiturates Screen NEGATIVE (NEGATIVE) 01/23/17 10:15 Ur Tricyclics Screen NEGATIVE (NEGATIVE) 01/23/17 10:15 Ur Phencyclidine Scrn NEGATIVE (NEGATIVE) 01/23/17 10:15 Amphetamines Screen NEGATIVE (NEGATIVE) 01/23/17 10:15 U Methamphetamines Scrn NEGATIVE (NEGATIVE) 01/23/17 10:15 U Benzodiazepines Scrn NEGATIVE (NEGATIVE) 01/23/17 10:15 U Cocaine Metab Screen NEGATIVE (NEGATIVE) 01/23/17 10:15 U Cannabinoids Screen NEGATIVE (NEGATIVE) 01/23/17 10:15 RPR NONREACTIVE (NONREACTIVE) 01/21/17 21:16 - Physical Exam Vitals and I&O: Vital Signs Temp 98.0 F 01/26/17 00:00 Pulse 89 01/26/17 00:00 Resp 18 01/26/17 00:00 BP 133/78 01/26/17 00:00 Pulse Ox 97 01/26/17 00:00 Intake & Output 01/25/17 01/25/17 01/26/17 06:59 18:59 06:59 Intake Total 1000 Balance 1000 Weight (lbs) 128.004 kg Intake: Intake, IV Amount 1000 D5-0.45NS w/20 mEq KCL 1, 1000 000 ml @ 75 mls/hr IV . [id number] [facility] Rx#:[id number] Other: # Voids 4 # Bowel Movements 0 Active Medications: Current Medications Ceftriaxone Sodium 1 gm/ (Sodium Chloride) 50 mls @ 100 mls/hr IV Q24HR [facility] Stop: 03/23/17 08:59 Last Admin: 01/25/17 08:46 Dose: 100 mls/hr Potassium Chloride/Dextrose/Sod Cl (D5-0.45ns W/20 Meq Kcl) 1,000 mls @ 75 mls/ hr IV .[id number] [facility] Stop: 03/23/17 07:59 Last Admin: 01/25/17 12:34 Dose: 75 mls/hr Lactobacillus Rhamnosus (Culturelle) 1 each PO DAILY [facility] Stop: 03/27/17 08:59 Miscellaneous (Probiotic Screen) 1 ea MC PRN PRN PRN Reason: PROTOCOL Stop: 03/26/17 11:22 Ondansetron HCl (Zofran) 4 mg IV Q6H PRN PRN Reason: Nausea / Vomiting Stop: 03/23/17 03:05 Pantoprazole Sodium (Protonix) 40 mg IVP DAILY [facility] Stop: 03/23/17 08:59 Last Admin: 01/25/17 08:46 Dose: 40 mg General: Alert, Oriented x3, No acute distress HEENT: Atraumatic, PERRLA, EOMI Neck: Supple Cardiovascular: Regular rate, Normal S1, Normal S2 Abdomen: Bowel sounds Extremities: no Clubbing, no Cyanosis, no Edema - Procedures Procedures: Procedures Procedure Code Date CHALAZION EXCISION 08.09/17/05 REMOVE EYELID LESION 46295 09/17/05 Assessment/Plan - Assessment Assessment: abdominal pain r/o gallstones r/o pancreatitis leukocytosis hypokalemia Cholecystitis - Plan Plan: GI consult HIDA scan done Surgical consult Rocephin 1gm IV repeat CBC,CMP, amylase, lipase D5 1/2NS @ 75cc/hr on clear liquid diet. consider outpatient surgery if non-emergent. Nutritional Asmnt/Malnutr-PDOC - Dietary Evaluation Malnutrition Findings (Please click <Entered> for more info): Nutritional Asmnt/Malnutrition Start: 01/24/17 13: 08 Text: Status: Complete Freq: Document 01/24/17 13:59 LCHENG (Rec: 01/24/17 14:25 LCHENG [email or web address]) Nutritional Asmnt/Malnutrition Patient General Information Nutritional Screening High Risk Diagnosis vomiting, dehydration Pertinent Medical Hx/Surgical Hx seizure, mentally challenged Subjective Information Pt was admited for N/V and abdominal pain. Pt seen sitting on bed, alert, only Hebrew speaking. GREGG Meneses helped to translate. Pt denied N/V today, reported he noticed wt gain during the recent months. Pt appeared obese. Per notes, pt is having HIDA scan and wallow eval today. Current Diet Order/ Nutrition Support NPO Pertinent Medications Kcl IV Pertinent Labs 01/24 Cl 109H, Cr 0.6L,Glu 104 01/23 K 3.4L, Cr 0.6L, Glu 109H, ALT 58H, Alb 4.0L Nutritional Hx/Data Height 1.73 m Height (Calculated Centimeters) 172.7 Current Weight (lbs) 128.004 kg Weight (Calculated Kilograms) 128.0 Weight (Calculated Grams) 131028.8 [place] Body Weight 154 % [place] Body Weight 183 Body Mass Index (BMI) 42.9 Recent Weight Change Yes Weight Status Obese GI Symptoms GI Symptoms None Last BM 01/23 Usual diet at home cook at home, likes chu per pt Skin Integrity/Comment: intact Estimated Nutritional Goals BEE in Kcals: Adj wt of IBW Calories/Kcals/Kg adj wt 84.5 Kcals Calculated 2112-2535kcal (25-30kcal/kg) Protein: Adj wt of IBW Protein g/k.8-1 Protein Calculated 68-85 Fluid: ml 5791-6577 Nutritional Problem 1. Problem Problem obesity Etiology ?imbalanced meal, excessive calorie intake Signs/Symptoms: BMI 42.9 Malnutrition Alert Protein-Calorie Malnutrition N/A Is there a minimum of two criteria No selected? Query Text:Check all the applicable criteria. A minimum of two criteria are recommended for diagnosis of either severe or non-severe malnutrition. Intervention/Recommendation Comments 1. monitor NPO status. 2. if pt is approriate for oral diet, will recommend regular diet with texture as ST recommend. 3. monitor wt weekly, labs and skin integrity 4. F/U as high risk in 2-3 days, 01/26-01/27 Expected Outcomes/Goals Expected Outcomes/Goals 1. Ptto meet at least 75% of nutritional needs in 2-3 days 2. wt stability, skin to remain intact, labs to approach WNL, show no sign/ synptoms of dehydration
[2017-01-26] MEDS: cefTRIAXone 1 GM in Sodium Chloride 0.9% 50 ML IV SCH (08:15)
[2017-01-26] MEDS: Lactobacillus Rhamnosus 10 Billion CFU Capsule PO SCH (08:15)
--- NOTE | 2017-01-26 12:45 | General Progress Note ---
Subjective - Review of Systems Service Date: 01/26/17 Events since last encounter: recheck labs in AM decision for surgery ? due to weight - we might not have long instruments here Objective - Results Result Diagrams: 01/24/17 05:48 01/24/17 05:48 Recent Labs: Laboratory Last Values WBC 16.6 Th/cmm (4.8-10.8) H D 01/24/17 05:48 RBC 5.65 Mil/cmm (4.30-5.70) 01/24/17 05:48 Hgb 14.1 gm/dL (12-16) 01/24/17 05:48 Hct 42.6 % (41.0-60) 01/24/17 05:48 MCV 75.3 fl (80-99) L 01/24/17 05:48 MCH 25.0 pg (26.0-30.0) L 01/24/17 05:48 MCHC Differential 33.1 pg (28.0-36.0) 01/24/17 05:48 RDW 14.3 % (11.5-20.0) 01/24/17 05:48 Plt Count 141 Th/cmm (150-400) L D 01/24/17 05:48 MPV 9.5 fl 01/24/17 05:48 Neutrophils % 74.2 % (40.0-80.0) 01/24/17 05:48 Lymphocytes % 19.4 % (20.0-50.0) L 01/24/17 05:48 Monocytes % 3.4 % (2.0-10.0) 01/24/17 05:48 Eosinophils % 3.0 % (0.0-5.0) 01/24/17 05:48 Basophils % 0.0 % (0.0-2.0) 01/24/17 05:48 Neutrophils (Manual) 94 % (40-80) H 01/21/17 21:16 Lymphocytes 4 % (20-50) L 01/21/17 21:16 Monocytes 2 % (2-10) 01/21/17 21:16 Platelet Estimate ADEQUATE (NORMAL) 01/21/17 21:16 Microcytosis 2+ 01/21/17 21:16 RBC Morph Micro Appear ABNORMAL (NORMAL) 01/21/17 21:16 PT 11.9 SECONDS (9.5-11.5) H 01/21/17 21:16 INR 1.13 (0.5-1.4) 01/21/17 21:16 Sodium 138 mEq/L (136-145) 01/24/17 05:48 Potassium 4.3 mEq/L (3.5-5.1) 01/24/17 05:48 Chloride 109 mEq/L (98-107) H 01/24/17 05:48 Carbon Dioxide 19.2 mEq/L (21.0-31.0) L 01/24/17 05:48 Anion Gap 14.1 (7.0-16.0) 01/24/17 05:48 BUN 11 mg/dL (7-25) 01/24/17 05:48 Creatinine 0.6 mg/dL (0.7-1.3) L 01/24/17 05:48 Est GFR ( Amer) > 60.0 ml/min (>90) 01/24/17 05:48 Est GFR (Non-Af Amer) > 60.0 ml/min 01/24/17 05:48 BUN/Creatinine Ratio 18.3 01/24/17 05:48 Glucose 104 mg/dL (70-105) 01/24/17 05:48 Whole Bld Lactic Acid 1.25 mmol/L (0.60-1.99) 01/21/17 21:16 Calcium 8.9 mg/dL (8.6-10.3) 01/24/17 05:48 Magnesium 2.1 mg/dL (1.9-2.7) 01/22/17 05:30 Total Bilirubin 0.8 mg/dL (0.3-1.0) 01/23/17 06:48 Direct Bilirubin 0.18 mg/dL (0.0-0.2) 01/23/17 06:48 AST 21 U/L (13-39) 01/23/17 06:48 ALT 58 U/L (7-52) H 01/23/17 06:48 Alkaline Phosphatase 94 U/L (34-104) 01/23/17 06:48 Troponin I < 0.01 ng/mL (0.01-0.05) L 01/21/17 21:16 Total Protein 7.2 gm/dL (6.0-8.3) 01/23/17 06:48 Albumin 4.0 gm/dL (4.2-5.5) L 01/23/17 06:48 Globulin 3.2 gm/dL 01/23/17 06:48 Albumin/Globulin Ratio 1.3 (1.0-1.8) 01/23/17 06:48 Triglycerides 73 mg/dL (<150) 01/22/17 13:15 Amylase 49 U/L (29-103) 01/24/17 05:48 Lipase 34 U/L (11-82) 01/24/17 05:48 TSH 1.75 uIU/ml (0.34-5.60) 01/21/17 21:16 Urine Source CLEAN C 01/23/17 10:15 Urine Color YELLOW 01/23/17 10:15 Urine Clarity HAZY (CLEAR) 01/23/17 10:15 Urine pH 6.0 (4.6 - 8.0) 01/23/17 10:15 Ur Specific [place] 1.025 (1.005-1.030) 01/23/17 10:15 Urine Protein 30 mg/dL (NEGATIVE) H 01/23/17 10:15 Urine Glucose (UA) NEGATIVE mg/dL (NEGATIVE) 01/23/17 10:15 Urine Ketones 40 mg/dL (NEGATIVE) H 01/23/17 10:15 Urine Blood NEGATIVE (NEGATIVE) 01/23/17 10:15 Urine Nitrate NEGATIVE (NEGATIVE) 01/23/17 10:15 Urine Bilirubin SMALL (NEGATIVE) H 01/23/17 10:15 Urine Urobilinogen 2.0 E.U./dL (0.2 - 1.0) 01/23/17 10:15 Ur Leukocyte Esterase NEGATIVE (NEGATIVE) 01/23/17 10:15 Urine RBC 0-2 /hpf (0-5) H 01/23/17 10:15 Urine WBC 2-5 /hpf (0-5) H 01/23/17 10:15 Ur Epithelial Cells FEW /lpf (FEW) 01/23/17 10:15 Urine Bacteria FEW /hpf (NONE SEEN) 01/23/17 10:15 Urine Mucus FEW /lpf (FEW) 01/23/17 10:15 Urine Opiates Screen NEGATIVE (NEGATIVE) 01/23/17 10:15 Urine Methadone Screen NEGATIVE (NEGATIVE) 01/23/17 10:15 Ur Barbiturates Screen NEGATIVE (NEGATIVE) 01/23/17 10:15 Ur Tricyclics Screen NEGATIVE (NEGATIVE) 01/23/17 10:15 Ur Phencyclidine Scrn NEGATIVE (NEGATIVE) 01/23/17 10:15 Amphetamines Screen NEGATIVE (NEGATIVE) 01/23/17 10:15 U Methamphetamines Scrn NEGATIVE (NEGATIVE) 01/23/17 10:15 U Benzodiazepines Scrn NEGATIVE (NEGATIVE) 01/23/17 10:15 U Cocaine Metab Screen NEGATIVE (NEGATIVE) 01/23/17 10:15 U Cannabinoids Screen NEGATIVE (NEGATIVE) 01/23/17 10:15 RPR NONREACTIVE (NONREACTIVE) 01/21/17 21:16 - Physical Exam Vitals and I&O: Vital Signs Temp 97.8 F 01/26/17 12:00 Pulse 56 01/26/17 12:00 Resp 17 01/26/17 12:00 BP 119/67 01/26/17 12:00 Pulse Ox 96 01/26/17 12:00 Intake & Output 01/25/17 01/26/17 01/26/17 18:59 06:59 18:59 Intake Total 1050 50 50 Balance 1050 50 50 Weight (lbs) 128.004 kg 127.913 kg Intake: Intake, IV Amount 1050 50 D5-0.45NS w/20 mEq KCL 1, 1000 000 ml @ 75 mls/hr IV . [id number] [facility] Rx#:[id number] cefTRIAXone 1 gm In 50 50 Sodium Chloride 0.9% 50 ml @ 100 mls/hr IV Q24HR [facility] Rx#:[id number] Oral 50 Other: # Voids 4 # Bowel Movements 0 1 Active Medications: Current Medications Ceftriaxone Sodium 1 gm/ (Sodium Chloride) 50 mls @ 100 mls/hr IV Q24HR [facility] Stop: 03/23/17 08:59 Last Infusion: 01/26/17 11:00 Dose: Infused Potassium Chloride/Dextrose/Sod Cl (D5-0.45ns W/20 Meq Kcl) 1,000 mls @ 75 mls/ hr IV .[id number] [facility] Stop: 03/23/17 07:59 Last Admin: 01/25/17 12:34 Dose: 75 mls/hr Lactobacillus Rhamnosus (Culturelle) 1 each PO DAILY [facility] Stop: 03/27/17 08:59 Last Admin: 01/26/17 08:15 Dose: 1 each Miscellaneous (Probiotic Screen) 1 ea MC PRN PRN PRN Reason: PROTOCOL Stop: 03/26/17 11:22 Ondansetron HCl (Zofran) 4 mg IV Q6H PRN PRN Reason: Nausea / Vomiting Stop: 03/23/17 03:05 Pantoprazole Sodium (Protonix) 40 mg IVP DAILY [facility] Stop: 03/23/17 08:59 Last Admin: 01/26/17 08:15 Dose: 40 mg General: Alert, Oriented x3, No acute distress HEENT: Atraumatic, PERRLA, EOMI Neck: Supple Cardiovascular: Regular rate, Normal S1, Normal S2 Abdomen: Bowel sounds Extremities: no Clubbing, no Cyanosis, no Edema - Procedures Procedures: Procedures Procedure Code Date CHALAZION EXCISION 10.2209/17/05 REMOVE EYELID LESION 03404 09/17/05 Nutritional Asmnt/Malnutr-PDOC - Dietary Evaluation Malnutrition Findings (Please click <Entered> for more info): Nutritional Asmnt/Malnutrition Start: 01/24/17 13: 08 Text: Status: Complete Freq: Document 01/24/17 13:59 LCHENG (Rec: 01/24/17 14:25 LCHENG [email or web address]) Nutritional Asmnt/Malnutrition Patient General Information Nutritional Screening High Risk Diagnosis vomiting, dehydration Pertinent Medical Hx/Surgical Hx seizure, mentally challenged Subjective Information Pt was admited for N/V and abdominal pain. Pt seen sitting on bed, alert, only Turkmen speaking. GREGG Meneses helped to translate. Pt denied N/V today, reported he noticed wt gain during the recent months. Pt appeared obese. Per notes, pt is having HIDA scan and wallow eval today. Current Diet Order/ Nutrition Support NPO Pertinent Medications Kcl IV Pertinent Labs 01/24 Cl 109H, Cr 0.6L,Glu 104 01/23 K 3.4L, Cr 0.6L, Glu 109H, ALT 58H, Alb 4.0L Nutritional Hx/Data Height 1.73 m Height (Calculated Centimeters) 172.7 Current Weight (lbs) 128.004 kg Weight (Calculated Kilograms) 128.0 Weight (Calculated Grams) 515228.8 [place] Body Weight 154 % [place] Body Weight 183 Body Mass Index (BMI) 42.9 Recent Weight Change Yes Weight Status Obese GI Symptoms GI Symptoms None Last BM 01/23 Usual diet at home cook at home, likes burger per pt Skin Integrity/Comment: intact Estimated Nutritional Goals BEE in Kcals: Adj wt of IBW Calories/Kcals/Kg adj wt 84.5 Kcals Calculated 2112-2534kcal (25-30kcal/kg) Protein: Adj wt of IBW Protein g/k.8-1 Protein Calculated 68-85 Fluid: ml 8514-3268 Nutritional Problem 1. Problem Problem obesity Etiology ?imbalanced meal, excessive calorie intake Signs/Symptoms: BMI 42.9 Malnutrition Alert Protein-Calorie Malnutrition N/A Is there a minimum of two criteria No selected? Query Text:Check all the applicable criteria. A minimum of two criteria are recommended for diagnosis of either severe or non-severe malnutrition. Intervention/Recommendation Comments 1. monitor NPO status. 2. if pt is approriate for oral diet, will recommend regular diet with texture as ST recommend. 3. monitor wt weekly, labs and skin integrity 4. F/U as high risk in 2-3 days, 01/26-01/27 Expected Outcomes/Goals Expected Outcomes/Goals 1. Ptto meet at least 75% of nutritional needs in 2-3 days 2. wt stability, skin to remain intact, labs to approach WNL, show no sign/ synptoms of dehydration
[2017-01-26] MEDS: D5-0.45NS w/20 mEq KCL 1,000 ML IV SCH (16:00)
--- NOTE | 2017-01-27 05:09 | General Progress Note ---
Subjective - Review of Systems Service Date: 01/27/17 Subjective: Awake, alert, afebrile. WBC's 16K. HIDA report noted. on clear liquid diet. Will check labwork this AM. Objective - Results Result Diagrams: 01/24/17 05:48 01/24/17 05:48 Recent Labs: Laboratory Last Values WBC 16.6 Th/cmm (4.8-10.8) H D 01/24/17 05:48 RBC 5.65 Mil/cmm (4.30-5.70) 01/24/17 05:48 Hgb 14.1 gm/dL (12-16) 01/24/17 05:48 Hct 42.6 % (41.0-60) 01/24/17 05:48 MCV 75.3 fl (80-99) L 01/24/17 05:48 MCH 25.0 pg (26.0-30.0) L 01/24/17 05:48 MCHC Differential 33.1 pg (28.0-36.0) 01/24/17 05:48 RDW 14.3 % (11.5-20.0) 01/24/17 05:48 Plt Count 141 Th/cmm (150-400) L D 01/24/17 05:48 MPV 9.5 fl 01/24/17 05:48 Neutrophils % 74.2 % (40.0-80.0) 01/24/17 05:48 Lymphocytes % 19.4 % (20.0-50.0) L 01/24/17 05:48 Monocytes % 3.4 % (2.0-10.0) 01/24/17 05:48 Eosinophils % 3.0 % (0.0-5.0) 01/24/17 05:48 Basophils % 0.0 % (0.0-2.0) 01/24/17 05:48 Neutrophils (Manual) 94 % (40-80) H 01/21/17 21:16 Lymphocytes 4 % (20-50) L 01/21/17 21:16 Monocytes 2 % (2-10) 01/21/17 21:16 Platelet Estimate ADEQUATE (NORMAL) 01/21/17 21:16 Microcytosis 2+ 01/21/17 21:16 RBC Morph Micro Appear ABNORMAL (NORMAL) 01/21/17 21:16 PT 11.9 SECONDS (9.5-11.5) H 01/21/17 21:16 INR 1.13 (0.5-1.4) 01/21/17 21:16 Sodium 138 mEq/L (136-145) 01/24/17 05:48 Potassium 4.3 mEq/L (3.5-5.1) 01/24/17 05:48 Chloride 109 mEq/L (98-107) H 01/24/17 05:48 Carbon Dioxide 19.2 mEq/L (21.0-31.0) L 01/24/17 05:48 Anion Gap 14.1 (7.0-16.0) 01/24/17 05:48 BUN 11 mg/dL (7-25) 01/24/17 05:48 Creatinine 0.6 mg/dL (0.7-1.3) L 01/24/17 05:48 Est GFR ( Amer) > 60.0 ml/min (>90) 01/24/17 05:48 Est GFR (Non-Af Amer) > 60.0 ml/min 01/24/17 05:48 BUN/Creatinine Ratio 18.3 01/24/17 05:48 Glucose 104 mg/dL (70-105) 01/24/17 05:48 Whole Bld Lactic Acid 1.25 mmol/L (0.60-1.99) 01/21/17 21:16 Calcium 8.9 mg/dL (8.6-10.3) 01/24/17 05:48 Magnesium 2.1 mg/dL (1.9-2.7) 01/22/17 05:30 Total Bilirubin 0.8 mg/dL (0.3-1.0) 01/23/17 06:48 Direct Bilirubin 0.18 mg/dL (0.0-0.2) 01/23/17 06:48 AST 21 U/L (13-39) 01/23/17 06:48 ALT 58 U/L (7-52) H 01/23/17 06:48 Alkaline Phosphatase 94 U/L (34-104) 01/23/17 06:48 Troponin I < 0.01 ng/mL (0.01-0.05) L 01/21/17 21:16 Total Protein 7.2 gm/dL (6.0-8.3) 01/23/17 06:48 Albumin 4.0 gm/dL (4.2-5.5) L 01/23/17 06:48 Globulin 3.2 gm/dL 01/23/17 06:48 Albumin/Globulin Ratio 1.3 (1.0-1.8) 01/23/17 06:48 Triglycerides 73 mg/dL (<150) 01/22/17 13:15 Amylase 49 U/L (29-103) 01/24/17 05:48 Lipase 34 U/L (11-82) 01/24/17 05:48 TSH 1.75 uIU/ml (0.34-5.60) 01/21/17 21:16 Urine Source CLEAN C 01/23/17 10:15 Urine Color YELLOW 01/23/17 10:15 Urine Clarity HAZY (CLEAR) 01/23/17 10:15 Urine pH 6.0 (4.6 - 8.0) 01/23/17 10:15 Ur Specific [place] 1.025 (1.005-1.030) 01/23/17 10:15 Urine Protein 30 mg/dL (NEGATIVE) H 01/23/17 10:15 Urine Glucose (UA) NEGATIVE mg/dL (NEGATIVE) 01/23/17 10:15 Urine Ketones 40 mg/dL (NEGATIVE) H 01/23/17 10:15 Urine Blood NEGATIVE (NEGATIVE) 01/23/17 10:15 Urine Nitrate NEGATIVE (NEGATIVE) 01/23/17 10:15 Urine Bilirubin SMALL (NEGATIVE) H 01/23/17 10:15 Urine Urobilinogen 2.0 E.U./dL (0.2 - 1.0) 01/23/17 10:15 Ur Leukocyte Esterase NEGATIVE (NEGATIVE) 01/23/17 10:15 Urine RBC 0-2 /hpf (0-5) H 01/23/17 10:15 Urine WBC 2-5 /hpf (0-5) H 01/23/17 10:15 Ur Epithelial Cells FEW /lpf (FEW) 01/23/17 10:15 Urine Bacteria FEW /hpf (NONE SEEN) 01/23/17 10:15 Urine Mucus FEW /lpf (FEW) 01/23/17 10:15 Urine Opiates Screen NEGATIVE (NEGATIVE) 01/23/17 10:15 Urine Methadone Screen NEGATIVE (NEGATIVE) 01/23/17 10:15 Ur Barbiturates Screen NEGATIVE (NEGATIVE) 01/23/17 10:15 Ur Tricyclics Screen NEGATIVE (NEGATIVE) 01/23/17 10:15 Ur Phencyclidine Scrn NEGATIVE (NEGATIVE) 01/23/17 10:15 Amphetamines Screen NEGATIVE (NEGATIVE) 01/23/17 10:15 U Methamphetamines Scrn NEGATIVE (NEGATIVE) 01/23/17 10:15 U Benzodiazepines Scrn NEGATIVE (NEGATIVE) 01/23/17 10:15 U Cocaine Metab Screen NEGATIVE (NEGATIVE) 01/23/17 10:15 U Cannabinoids Screen NEGATIVE (NEGATIVE) 01/23/17 10:15 RPR NONREACTIVE (NONREACTIVE) 01/21/17 21:16 - Physical Exam Vitals and I&O: Vital Signs Temp 97 F 01/27/17 00:00 Pulse 76 01/27/17 00:00 Resp 18 01/27/17 00:00 BP 124/67 01/27/17 00:00 Pulse Ox 97 01/27/17 00:00 Intake & Output 01/26/17 01/26/17 01/27/17 06:59 18:59 06:59 Intake Total 1050 850 Balance 1050 850 Weight (lbs) 127.913 kg 127.913 kg Intake: Intake, IV Amount 1000 50 D5-0.45NS w/20 mEq KCL 1, 1000 000 ml @ 75 mls/hr IV . [id number] [facility] Rx#:[id number] cefTRIAXone 1 gm In 50 Sodium Chloride 0.9% 50 ml @ 100 mls/hr IV Q24HR [facility] Rx#:[id number] Oral 50 800 Other: # Voids 4 # Bowel Movements 1 1 Active Medications: Current Medications Ceftriaxone Sodium 1 gm/ (Sodium Chloride) 50 mls @ 100 mls/hr IV Q24HR [facility] Stop: 03/23/17 08:59 Last Infusion: 01/26/17 11:00 Dose: Infused Potassium Chloride/Dextrose/Sod Cl (D5-0.45ns W/20 Meq Kcl) 1,000 mls @ 75 mls/ hr IV .[id number] [facility] Stop: 03/23/17 07:59 Last Admin: 01/26/17 16:00 Dose: 75 mls/hr Lactobacillus Rhamnosus (Culturelle) 1 each PO DAILY [facility] Stop: 03/27/17 08:59 Last Admin: 01/26/17 08:15 Dose: 1 each Miscellaneous (Probiotic Screen) 1 ea MC PRN PRN PRN Reason: PROTOCOL Stop: 03/26/17 11:22 Ondansetron HCl (Zofran) 4 mg IV Q6H PRN PRN Reason: Nausea / Vomiting Stop: 03/23/17 03:05 Pantoprazole Sodium (Protonix) 40 mg IVP DAILY [facility] Stop: 03/23/17 08:59 Last Admin: 01/26/17 08:15 Dose: 40 mg General: Alert, Oriented x3, No acute distress HEENT: Atraumatic, PERRLA, EOMI Neck: Supple Cardiovascular: Regular rate, Normal S1, Normal S2 Abdomen: Bowel sounds Extremities: no Clubbing, no Cyanosis, no Edema - Procedures Procedures: Procedures Procedure Code Date CHALAZION EXCISION 08.09/17/05 REMOVE EYELID LESION 20264 09/17/05 Assessment/Plan - Assessment Assessment: abdominal pain r/o gallstones r/o pancreatitis leukocytosis hypokalemia Cholecystitis - Plan Plan: GI consult HIDA scan done Surgical consult Rocephin 1gm IV repeat CBC,CMP, amylase, lipase D5 1/2NS @ 75cc/hr on clear liquid diet. consider outpatient surgery if non-emergent. Nutritional Asmnt/Malnutr-PDOC - Dietary Evaluation Malnutrition Findings (Please click <Entered> for more info): Nutritional Asmnt/Malnutrition Start: 01/24/17 13: 08 Text: Status: Complete Freq: Document 01/24/17 13:59 LCHENG (Rec: 01/24/17 14:25 LCHENG [email or web address]) Nutritional Asmnt/Malnutrition Patient General Information Nutritional Screening High Risk Diagnosis vomiting, dehydration Pertinent Medical Hx/Surgical Hx seizure, mentally challenged Subjective Information Pt was admited for N/V and abdominal pain. Pt seen sitting on bed, alert, only [place] speaking. GREGG Meneses helped to translate. Pt denied N/V today, reported he noticed wt gain during the recent months. Pt appeared obese. Per notes, pt is having HIDA scan and wallow eval today. Current Diet Order/ Nutrition Support NPO Pertinent Medications Kcl IV Pertinent Labs 01/24 Cl 109H, Cr 0.6L,Glu 104 01/23 K 3.4L, Cr 0.6L, Glu 109H, ALT 58H, Alb 4.0L Nutritional Hx/Data Height 1.73 m Height (Calculated Centimeters) 172.7 Current Weight (lbs) 128.004 kg Weight (Calculated Kilograms) 128.0 Weight (Calculated Grams) 373916.8 [place] Body Weight 154 % [place] Body Weight 183 Body Mass Index (BMI) 42.9 Recent Weight Change Yes Weight Status Obese GI Symptoms GI Symptoms None Last BM 01/23 Usual diet at home cook at home, likes burger per pt Skin Integrity/Comment: intact Estimated Nutritional Goals BEE in Kcals: Adj wt of IBW Calories/Kcals/Kg adj wt 84.5 Kcals Calculated 2112-2534kcal (25-30kcal/kg) Protein: Adj wt of IBW Protein g/k.8-1 Protein Calculated 68-85 Fluid: ml 2041-9821 Nutritional Problem 1. Problem Problem obesity Etiology ?imbalanced meal, excessive calorie intake Signs/Symptoms: BMI 42.9 Malnutrition Alert Protein-Calorie Malnutrition N/A Is there a minimum of two criteria No selected? Query Text:Check all the applicable criteria. A minimum of two criteria are recommended for diagnosis of either severe or non-severe malnutrition. Intervention/Recommendation Comments 1. monitor NPO status. 2. if pt is approriate for oral diet, will recommend regular diet with texture as ST recommend. 3. monitor wt weekly, labs and skin integrity 4. F/U as high risk in 2-3 days, 01/26-01/27 Expected Outcomes/Goals Expected Outcomes/Goals 1. Ptto meet at least 75% of nutritional needs in 2-3 days 2. wt stability, skin to remain intact, labs to approach WNL, show no sign/ synptoms of dehydration
[2017-01-27] MEDS: D5-0.45NS w/20 mEq KCL 1,000 ML IV SCH (05:30)
[2017-01-27 06:01] LABS: ALB/GLOB RATIO 1.1 (1.0-1.8); ALKALINE PHOSPHATASE 99 U/L (34-104); BILIRUBIN,TOTAL 0.7 mg/dL (0.3-1.0); BUN - UREA NITROGEN 10 mg/dL (7-25); BUN/CREATININE RATIO 14.3; CALCIUM SERUM 8.9 mg/dL (8.6-10.3); CARBON DIOXIDE 24.4 mEq/L (21.0-31.0); CHLORIDE 106 mEq/L (98-107); CREATININE - SERUM 0.7 mg/dL (0.7-1.3); GLUCOSE 95 mg/dL (70-105); POTASSIUM SERUM 3.4 mEq/L (3.5-5.1); SGOT 18 U/L (13-39); SGPT/ALT 26 U/L (7-52); SODIUM SERUM 137 mEq/L (136-145)
[2017-01-27] MEDS ORDERED: Potassium Chloride 40 MEQ, Lidocaine 1% 20mL Vial 25 MG in Sodium Chloride 0.9% 250 ML IV ONE (08:36)
[2017-01-27] MEDS: Lactobacillus Rhamnosus 10 Billion CFU Capsule PO SCH (09:12)
[2017-01-27] MEDS: cefTRIAXone 1 GM in Sodium Chloride 0.9% 50 ML IV SCH (09:12)
--- NOTE | 2017-01-27 14:24 | General Progress Note ---
Subjective - Review of Systems Service Date: 01/27/17 Events since last encounter: tentatively scheduled for surgery in pending verification of long instrument for surgery Objective - Results Result Diagrams: 01/24/17 05:48 01/27/17 05:10 Recent Labs: Laboratory Last Values WBC 16.6 Th/cmm (4.8-10.8) H D 01/24/17 05:48 RBC 5.65 Mil/cmm (4.30-5.70) 01/24/17 05:48 Hgb 14.1 gm/dL (12-16) 01/24/17 05:48 Hct 42.6 % (41.0-60) 01/24/17 05:48 MCV 75.3 fl (80-99) L 01/24/17 05:48 MCH 25.0 pg (26.0-30.0) L 01/24/17 05:48 MCHC Differential 33.1 pg (28.0-36.0) 01/24/17 05:48 RDW 14.3 % (11.5-20.0) 01/24/17 05:48 Plt Count 141 Th/cmm (150-400) L D 01/24/17 05:48 MPV 9.5 fl 01/24/17 05:48 Neutrophils % 74.2 % (40.0-80.0) 01/24/17 05:48 Lymphocytes % 19.4 % (20.0-50.0) L 01/24/17 05:48 Monocytes % 3.4 % (2.0-10.0) 01/24/17 05:48 Eosinophils % 3.0 % (0.0-5.0) 01/24/17 05:48 Basophils % 0.0 % (0.0-2.0) 01/24/17 05:48 Neutrophils (Manual) 94 % (40-80) H 01/21/17 21:16 Lymphocytes 4 % (20-50) L 01/21/17 21:16 Monocytes 2 % (2-10) 01/21/17 21:16 Platelet Estimate ADEQUATE (NORMAL) 01/21/17 21:16 Microcytosis 2+ 01/21/17 21:16 RBC Morph Micro Appear ABNORMAL (NORMAL) 01/21/17 21:16 PT 11.9 SECONDS (9.5-11.5) H 01/21/17 21:16 INR 1.13 (0.5-1.4) 01/21/17 21:16 Sodium 137 mEq/L (136-145) 01/27/17 05:10 Potassium 3.4 mEq/L (3.5-5.1) L 01/27/17 05:10 Chloride 106 mEq/L (98-107) 01/27/17 05:10 Carbon Dioxide 24.4 mEq/L (21.0-31.0) 01/27/17 05:10 Anion Gap 10.0 (7.0-16.0) 01/27/17 05:10 BUN 10 mg/dL (7-25) 01/27/17 05:10 Creatinine 0.7 mg/dL (0.7-1.3) 01/27/17 05:10 Est GFR ( Amer) > 60.0 ml/min (>90) 01/27/17 05:10 Est GFR (Non-Af Amer) > 60.0 ml/min 01/27/17 05:10 BUN/Creatinine Ratio 14.3 01/27/17 05:10 Glucose 95 mg/dL (70-105) 01/27/17 05:10 Whole Bld Lactic Acid 1.25 mmol/L (0.60-1.99) 01/21/17 21:16 Calcium 8.9 mg/dL (8.6-10.3) 01/27/17 05:10 Magnesium 2.1 mg/dL (1.9-2.7) 01/22/17 05:30 Total Bilirubin 0.7 mg/dL (0.3-1.0) 01/27/17 05:10 Direct Bilirubin 0.18 mg/dL (0.0-0.2) 01/23/17 06:48 AST 18 U/L (13-39) 01/27/17 05:10 ALT 26 U/L (7-52) 01/27/17 05:10 Alkaline Phosphatase 99 U/L (34-104) 01/27/17 05:10 Troponin I < 0.01 ng/mL (0.01-0.05) L 01/21/17 21:16 Total Protein 7.0 gm/dL (6.0-8.3) 01/27/17 05:10 Albumin 3.7 gm/dL (4.2-5.5) L 01/27/17 05:10 Globulin 3.3 gm/dL 01/27/17 05:10 Albumin/Globulin Ratio 1.1 (1.0-1.8) 01/27/17 05:10 Triglycerides 73 mg/dL (<150) 01/22/17 13:15 Amylase 49 U/L (29-103) 01/24/17 05:48 Lipase 34 U/L (11-82) 01/24/17 05:48 TSH 1.75 uIU/ml (0.34-5.60) 01/21/17 21:16 Urine Source CLEAN C 01/23/17 10:15 Urine Color YELLOW 01/23/17 10:15 Urine Clarity HAZY (CLEAR) 01/23/17 10:15 Urine pH 6.0 (4.6 - 8.0) 01/23/17 10:15 Ur Specific [place] 1.025 (1.005-1.030) 01/23/17 10:15 Urine Protein 30 mg/dL (NEGATIVE) H 01/23/17 10:15 Urine Glucose (UA) NEGATIVE mg/dL (NEGATIVE) 01/23/17 10:15 Urine Ketones 40 mg/dL (NEGATIVE) H 01/23/17 10:15 Urine Blood NEGATIVE (NEGATIVE) 01/23/17 10:15 Urine Nitrate NEGATIVE (NEGATIVE) 01/23/17 10:15 Urine Bilirubin SMALL (NEGATIVE) H 01/23/17 10:15 Urine Urobilinogen 2.0 E.U./dL (0.2 - 1.0) 01/23/17 10:15 Ur Leukocyte Esterase NEGATIVE (NEGATIVE) 01/23/17 10:15 Urine RBC 0-2 /hpf (0-5) H 01/23/17 10:15 Urine WBC 2-5 /hpf (0-5) H 01/23/17 10:15 Ur Epithelial Cells FEW /lpf (FEW) 01/23/17 10:15 Urine Bacteria FEW /hpf (NONE SEEN) 01/23/17 10:15 Urine Mucus FEW /lpf (FEW) 01/23/17 10:15 Urine Opiates Screen NEGATIVE (NEGATIVE) 01/23/17 10:15 Urine Methadone Screen NEGATIVE (NEGATIVE) 01/23/17 10:15 Ur Barbiturates Screen NEGATIVE (NEGATIVE) 01/23/17 10:15 Ur Tricyclics Screen NEGATIVE (NEGATIVE) 01/23/17 10:15 Ur Phencyclidine Scrn NEGATIVE (NEGATIVE) 01/23/17 10:15 Amphetamines Screen NEGATIVE (NEGATIVE) 01/23/17 10:15 U Methamphetamines Scrn NEGATIVE (NEGATIVE) 01/23/17 10:15 U Benzodiazepines Scrn NEGATIVE (NEGATIVE) 01/23/17 10:15 U Cocaine Metab Screen NEGATIVE (NEGATIVE) 01/23/17 10:15 U Cannabinoids Screen NEGATIVE (NEGATIVE) 01/23/17 10:15 RPR NONREACTIVE (NONREACTIVE) 01/21/17 21:16 - Physical Exam Vitals and I&O: Vital Signs Temp 98.7 F 01/27/17 12:00 Pulse 57 01/27/17 12:00 Resp 18 01/27/17 12:00 BP 127/77 01/27/17 12:00 Pulse Ox 98 01/27/17 12:00 Intake & Output 01/26/17 01/27/17 01/27/17 18:59 06:59 18:59 Intake Total 850 1000 50 Balance 850 1000 50 Weight (lbs) 127.913 kg Intake: Intake, IV Amount 50 1000 50 D5-0.45NS w/20 mEq KCL 1, 1000 000 ml @ 75 mls/hr IV . [id number] [facility] Rx#:[id number] cefTRIAXone 1 gm In 50 50 Sodium Chloride 0.9% 50 ml @ 100 mls/hr IV Q24HR [facility] Rx#:[id number] Oral 800 Other: # Voids 4 # Bowel Movements 1 Active Medications: Current Medications Ceftriaxone Sodium 1 gm/ (Sodium Chloride) 50 mls @ 100 mls/hr IV Q24HR [facility] Stop: 03/23/17 08:59 Last Infusion: 01/27/17 12:26 Dose: Infused Potassium Chloride/Dextrose/Sod Cl (D5-0.45ns W/20 Meq Kcl) 1,000 mls @ 75 mls/ hr IV .[id number] [facility] Stop: 03/23/17 07:59 Last Admin: 01/27/17 05:30 Dose: 75 mls/hr Lactobacillus Rhamnosus (Culturelle) 1 each PO DAILY [facility] Stop: 03/27/17 08:59 Last Admin: 01/27/17 09:12 Dose: 1 each Miscellaneous (Probiotic Screen) 1 ea MC PRN PRN PRN Reason: PROTOCOL Stop: 03/26/17 11:22 Ondansetron HCl (Zofran) 4 mg IV Q6H PRN PRN Reason: Nausea / Vomiting Stop: 03/23/17 03:05 Pantoprazole Sodium (Protonix) 40 mg IVP DAILY [facility] Stop: 03/23/17 08:59 Last Admin: 01/27/17 09:12 Dose: 40 mg General: Alert, Oriented x3, No acute distress HEENT: Atraumatic, PERRLA, EOMI Neck: Supple Cardiovascular: Regular rate, Normal S1, Normal S2 Abdomen: Bowel sounds Extremities: no Clubbing, no Cyanosis, no Edema - Procedures Procedures: Procedures Procedure Code Date CHALAZION EXCISION 10.2209/17/05 REMOVE EYELID LESION 06947 09/17/05 Nutritional Asmnt/Malnutr-PDOC - Dietary Evaluation Malnutrition Findings (Please click <Entered> for more info): Nutritional Asmnt/Malnutrition Start: 01/24/17 13: 08 Text: Status: Complete Freq: Document 01/24/17 13:59 HENG (Rec: 01/24/17 14:25 LCHENG [email or web address]) Nutritional Asmnt/Malnutrition Patient General Information Nutritional Screening High Risk Diagnosis vomiting, dehydration Pertinent Medical Hx/Surgical Hx seizure, mentally challenged Subjective Information Pt was admited for N/V and abdominal pain. Pt seen sitting on bed, alert, only [place]ic speaking. GREGG Meneses helped to translate. Pt denied N/V today, reported he noticed wt gain during the recent months. Pt appeared obese. Per notes, pt is having HIDA scan and wallow eval today. Current Diet Order/ Nutrition Support NPO Pertinent Medications Kcl IV Pertinent Labs 01/24 Cl 109H, Cr 0.6L,Glu 104 01/23 K 3.4L, Cr 0.6L, Glu 109H, ALT 58H, Alb 4.0L Nutritional Hx/Data Height 1.73 m Height (Calculated Centimeters) 172.7 Current Weight (lbs) 128.004 kg Weight (Calculated Kilograms) 128.0 Weight (Calculated Grams) 407310.8 [place] Body Weight 154 % [place] Body Weight 183 Body Mass Index (BMI) 42.9 Recent Weight Change Yes Weight Status Obese GI Symptoms GI Symptoms None Last BM 01/23 Usual diet at home cook at home, likes chu per pt Skin Integrity/Comment: intact Estimated Nutritional Goals BEE in Kcals: Adj wt of IBW Calories/Kcals/Kg adj wt 84.5 Kcals Calculated 2112-2534kcal (25-30kcal/kg) Protein: Adj wt of IBW Protein g/k.8-1 Protein Calculated 68-85 Fluid: ml 0288-6137 Nutritional Problem 1. Problem Problem obesity Etiology ?imbalanced meal, excessive calorie intake Signs/Symptoms: BMI 42.9 Malnutrition Alert Protein-Calorie Malnutrition N/A Is there a minimum of two criteria No selected? Query Text:Check all the applicable criteria. A minimum of two criteria are recommended for diagnosis of either severe or non-severe malnutrition. Intervention/Recommendation Comments 1. monitor NPO status. 2. if pt is approriate for oral diet, will recommend regular diet with texture as ST recommend. 3. monitor wt weekly, labs and skin integrity 4. F/U as high risk in 2-3 days, 01/26-01/27 Expected Outcomes/Goals Expected Outcomes/Goals 1. Ptto meet at least 75% of nutritional needs in 2-3 days 2. wt stability, skin to remain intact, labs to approach WNL, show no sign/ synptoms of dehydration
[2017-01-28 06:41] LABS: % BASOPHILS 0.9 % (0.0-2.0); % EOSINOPHILS 3.7 % (0.0-5.0); % LYMPHOCYTES 27.6 % (20.0-50.0); % MONOCYTES 4.2 % (2.0-10.0); % NEUTROPHILS 63.6 % (40.0-80.0); HEMATOCRIT 40.2 % (41.0-60); HEMOGLOBIN 13.6 gm/dL (12-16); MEAN CELL VOLUME 74.4 fl (80-99); MEAN CORPUSCULAR HEMOGLOBIN 25.2 pg (26.0-30.0); MEAN CORPUSCULAR HGB CONC 33.9 pg (28.0-36.0); MEAN PLATELET VOLUME 8.6 fl; NEUTROPHILE ABSOLUTE 5.7 Th/cmm (1.8-8.0); RED CELL DISTRIBUTION WIDTH 13.6 % (11.5-20.0)
[2017-01-28 06:42] LABS: PLATELET COUNT 264 Th/cmm (150-400)
[2017-01-28 07:24] LABS: ALB/GLOB RATIO 1.1 (1.0-1.8); ALKALINE PHOSPHATASE 99 U/L (34-104); ANION GAP 11.9 (7.0-16.0); BILIRUBIN,TOTAL 0.6 mg/dL (0.3-1.0); BUN - UREA NITROGEN 8 mg/dL (7-25); BUN/CREATININE RATIO 11.4; CALCIUM SERUM 9.3 mg/dL (8.6-10.3); CARBON DIOXIDE 22.9 mEq/L (21.0-31.0); CHLORIDE 107 mEq/L (98-107); CREATININE - SERUM 0.7 mg/dL (0.7-1.3); GLUCOSE 97 mg/dL (70-105); POTASSIUM SERUM 3.8 mEq/L (3.5-5.1); SGOT 18 U/L (13-39); SGPT/ALT 23 U/L (7-52); SODIUM SERUM 138 mEq/L (136-145)
--- NOTE | 2017-01-28 08:08 | General Progress Note ---
Subjective - Review of Systems Service Date: 01/28/17 Subjective: Awake, alert, afebrile. HIDA report noted. on clear liquid diet. WBC's 9K. for lap alecia. Objective - Results Result Diagrams: 01/28/17 06:00 01/28/17 06:00 Recent Labs: Laboratory Last Values WBC 9.0 Th/cmm (4.8-10.8) D 01/28/17 06:00 RBC 5.40 Mil/cmm (4.30-5.70) 01/28/17 06:00 Hgb 13.6 gm/dL (12-16) 01/28/17 06:00 Hct 40.2 % (41.0-60) L 01/28/17 06:00 MCV 74.4 fl (80-99) L 01/28/17 06:00 MCH 25.2 pg (26.0-30.0) L 01/28/17 06:00 MCHC Differential 33.9 pg (28.0-36.0) 01/28/17 06:00 RDW 13.6 % (11.5-20.0) 01/28/17 06:00 Plt Count 264 Th/cmm (150-400) D 01/28/17 06:00 MPV 8.6 fl 01/28/17 06:00 Neutrophils % 63.6 % (40.0-80.0) 01/28/17 06:00 Lymphocytes % 27.6 % (20.0-50.0) 01/28/17 06:00 Monocytes % 4.2 % (2.0-10.0) 01/28/17 06:00 Eosinophils % 3.7 % (0.0-5.0) 01/28/17 06:00 Basophils % 0.9 % (0.0-2.0) 01/28/17 06:00 Neutrophils (Manual) 94 % (40-80) H 01/21/17 21:16 Lymphocytes 4 % (20-50) L 01/21/17 21:16 Monocytes 2 % (2-10) 01/21/17 21:16 Platelet Estimate ADEQUATE (NORMAL) 01/21/17 21:16 Microcytosis 2+ 01/21/17 21:16 RBC Morph Micro Appear ABNORMAL (NORMAL) 01/21/17 21:16 PT 11.9 SECONDS (9.5-11.5) H 01/21/17 21:16 INR 1.13 (0.5-1.4) 01/21/17 21:16 Sodium 138 mEq/L (136-145) 01/28/17 06:00 Potassium 3.8 mEq/L (3.5-5.1) 01/28/17 06:00 Chloride 107 mEq/L (98-107) 01/28/17 06:00 Carbon Dioxide 22.9 mEq/L (21.0-31.0) 01/28/17 06:00 Anion Gap 11.9 (7.0-16.0) 01/28/17 06:00 BUN 8 mg/dL (7-25) 01/28/17 06:00 Creatinine 0.7 mg/dL (0.7-1.3) 01/28/17 06:00 Est GFR ( Amer) > 60.0 ml/min (>90) 01/28/17 06:00 Est GFR (Non-Af Amer) > 60.0 ml/min 01/28/17 06:00 BUN/Creatinine Ratio 11.4 01/28/17 06:00 Glucose 97 mg/dL (70-105) 01/28/17 06:00 Whole Bld Lactic Acid 1.25 mmol/L (0.60-1.99) 01/21/17 21:16 Calcium 9.3 mg/dL (8.6-10.3) 01/28/17 06:00 Magnesium 2.1 mg/dL (1.9-2.7) 01/22/17 05:30 Total Bilirubin 0.6 mg/dL (0.3-1.0) 01/28/17 06:00 Direct Bilirubin 0.18 mg/dL (0.0-0.2) 01/23/17 06:48 AST 18 U/L (13-39) 01/28/17 06:00 ALT 23 U/L (7-52) 01/28/17 06:00 Alkaline Phosphatase 99 U/L (34-104) 01/28/17 06:00 Troponin I < 0.01 ng/mL (0.01-0.05) L 01/21/17 21:16 Total Protein 7.2 gm/dL (6.0-8.3) 01/28/17 06:00 Albumin 3.8 gm/dL (4.2-5.5) L 01/28/17 06:00 Globulin 3.4 gm/dL 01/28/17 06:00 Albumin/Globulin Ratio 1.1 (1.0-1.8) 01/28/17 06:00 Triglycerides 73 mg/dL (<150) 01/22/17 13:15 Amylase 49 U/L (29-103) 01/24/17 05:48 Lipase 34 U/L (11-82) 01/24/17 05:48 TSH 1.75 uIU/ml (0.34-5.60) 01/21/17 21:16 Urine Source CLEAN C 01/23/17 10:15 Urine Color YELLOW 01/23/17 10:15 Urine Clarity HAZY (CLEAR) 01/23/17 10:15 Urine pH 6.0 (4.6 - 8.0) 01/23/17 10:15 Ur Specific [place] 1.025 (1.005-1.030) 01/23/17 10:15 Urine Protein 30 mg/dL (NEGATIVE) H 01/23/17 10:15 Urine Glucose (UA) NEGATIVE mg/dL (NEGATIVE) 01/23/17 10:15 Urine Ketones 40 mg/dL (NEGATIVE) H 01/23/17 10:15 Urine Blood NEGATIVE (NEGATIVE) 01/23/17 10:15 Urine Nitrate NEGATIVE (NEGATIVE) 01/23/17 10:15 Urine Bilirubin SMALL (NEGATIVE) H 01/23/17 10:15 Urine Urobilinogen 2.0 E.U./dL (0.2 - 1.0) 01/23/17 10:15 Ur Leukocyte Esterase NEGATIVE (NEGATIVE) 01/23/17 10:15 Urine RBC 0-2 /hpf (0-5) H 01/23/17 10:15 Urine WBC 2-5 /hpf (0-5) H 01/23/17 10:15 Ur Epithelial Cells FEW /lpf (FEW) 01/23/17 10:15 Urine Bacteria FEW /hpf (NONE SEEN) 01/23/17 10:15 Urine Mucus FEW /lpf (FEW) 01/23/17 10:15 Urine Opiates Screen NEGATIVE (NEGATIVE) 01/23/17 10:15 Urine Methadone Screen NEGATIVE (NEGATIVE) 01/23/17 10:15 Ur Barbiturates Screen NEGATIVE (NEGATIVE) 01/23/17 10:15 Ur Tricyclics Screen NEGATIVE (NEGATIVE) 01/23/17 10:15 Ur Phencyclidine Scrn NEGATIVE (NEGATIVE) 01/23/17 10:15 Amphetamines Screen NEGATIVE (NEGATIVE) 01/23/17 10:15 U Methamphetamines Scrn NEGATIVE (NEGATIVE) 01/23/17 10:15 U Benzodiazepines Scrn NEGATIVE (NEGATIVE) 01/23/17 10:15 U Cocaine Metab Screen NEGATIVE (NEGATIVE) 01/23/17 10:15 U Cannabinoids Screen NEGATIVE (NEGATIVE) 01/23/17 10:15 RPR NONREACTIVE (NONREACTIVE) 01/21/17 21:16 - Physical Exam Vitals and I&O: Vital Signs Temp 98.5 F 01/28/17 04:00 Pulse 64 01/28/17 04:00 Resp 17 01/28/17 04:00 BP 112/68 01/28/17 04:00 Pulse Ox 98 01/28/17 04:00 Intake & Output 01/27/17 01/28/17 01/28/17 18:59 06:59 18:59 Intake Total 850 100 Balance 850 100 Weight (lbs) 127.913 kg 127.913 kg Intake: Intake, IV Amount 50 cefTRIAXone 1 gm In 50 Sodium Chloride 0.9% 50 ml @ 100 mls/hr IV Q24HR [facility] Rx#:[id number] Oral 800 100 Other: # Voids 4 # Bowel Movements 1 Active Medications: Current Medications Ceftriaxone Sodium 1 gm/ (Sodium Chloride) 50 mls @ 100 mls/hr IV Q24HR [facility] Stop: 03/23/17 08:59 Last Infusion: 01/27/17 12:26 Dose: Infused Potassium Chloride/Dextrose/Sod Cl (D5-0.45ns W/20 Meq Kcl) 1,000 mls @ 75 mls/ hr IV .[id number] [facility] Stop: 03/23/17 07:59 Last Admin: 01/27/17 05:30 Dose: 75 mls/hr Lactobacillus Rhamnosus (Culturelle) 1 each PO DAILY [facility] Stop: 03/27/17 08:59 Last Admin: 01/27/17 09:12 Dose: 1 each Miscellaneous (Probiotic Screen) 1 ea MC PRN PRN PRN Reason: PROTOCOL Stop: 03/26/17 11:22 Ondansetron HCl (Zofran) 4 mg IV Q6H PRN PRN Reason: Nausea / Vomiting Stop: 03/23/17 03:05 Pantoprazole Sodium (Protonix) 40 mg IVP DAILY [facility] Stop: 03/23/17 08:59 Last Admin: 01/27/17 09:12 Dose: 40 mg General: Alert, Oriented x3, No acute distress HEENT: Atraumatic, PERRLA, EOMI Neck: Supple Cardiovascular: Regular rate, Normal S1, Normal S2 Abdomen: Bowel sounds Extremities: no Clubbing, no Cyanosis, no Edema - Procedures Procedures: Procedures Procedure Code Date CHALAZION EXCISION 08.09/17/05 REMOVE EYELID LESION 68481 09/17/05 Assessment/Plan - Assessment Assessment: abdominal pain r/o gallstones r/o pancreatitis leukocytosis hypokalemia Cholecystitis - Plan Plan: GI consult HIDA scan done Surgical consult Rocephin 1gm IV repeat CBC,CMP, amylase, lipase D5 1/2NS @ 75cc/hr on clear liquid diet. consider outpatient surgery if non-emergent. Nutritional Asmnt/Malnutr-PDOC - Dietary Evaluation Malnutrition Findings (Please click <Entered> for more info): Nutritional Asmnt/Malnutrition Start: 01/24/17 13: 08 Text: Status: Complete Freq: Document 01/24/17 13:59 LCHENG (Rec: 01/24/17 14:25 LCHENG [email or web address]) Nutritional Asmnt/Malnutrition Patient General Information Nutritional Screening High Risk Diagnosis vomiting, dehydration Pertinent Medical Hx/Surgical Hx seizure, mentally challenged Subjective Information Pt was admited for N/V and abdominal pain. Pt seen sitting on bed, alert, only Cambodian speaking. GREGG Meneses helped to translate. Pt denied N/V today, reported he noticed wt gain during the recent months. Pt appeared obese. Per notes, pt is having HIDA scan and wallow eval today. Current Diet Order/ Nutrition Support NPO Pertinent Medications Kcl IV Pertinent Labs 01/24 Cl 109H, Cr 0.6L,Glu 104 01/23 K 3.4L, Cr 0.6L, Glu 109H, ALT 58H, Alb 4.0L Nutritional Hx/Data Height 1.73 m Height (Calculated Centimeters) 172.7 Current Weight (lbs) 128.004 kg Weight (Calculated Kilograms) 128.0 Weight (Calculated Grams) 560476.8 [place] Body Weight 154 % [place] Body Weight 183 Body Mass Index (BMI) 42.9 Recent Weight Change Yes Weight Status Obese GI Symptoms GI Symptoms None Last BM 01/23 Usual diet at home cook at home, likes burger per pt Skin Integrity/Comment: intact Estimated Nutritional Goals BEE in Kcals: Adj wt of IBW Calories/Kcals/Kg adj wt 84.5 Kcals Calculated 2112-2535kcal (25-30kcal/kg) Protein: Adj wt of IBW Protein g/k.8-1 Protein Calculated 68-85 Fluid: ml 2166-3079 Nutritional Problem 1. Problem Problem obesity Etiology ?imbalanced meal, excessive calorie intake Signs/Symptoms: BMI 42.9 Malnutrition Alert Protein-Calorie Malnutrition N/A Is there a minimum of two criteria No selected? Query Text:Check all the applicable criteria. A minimum of two criteria are recommended for diagnosis of either severe or non-severe malnutrition. Intervention/Recommendation Comments 1. monitor NPO status. 2. if pt is approriate for oral diet, will recommend regular diet with texture as ST recommend. 3. monitor wt weekly, labs and skin integrity 4. F/U as high risk in 2-3 days, 01/26-01/27 Expected Outcomes/Goals Expected Outcomes/Goals 1. Ptto meet at least 75% of nutritional needs in 2-3 days 2. wt stability, skin to remain intact, labs to approach WNL, show no sign/ synptoms of dehydration
[2017-01-28] MEDS: cefTRIAXone 1 GM in Sodium Chloride 0.9% 50 ML IV SCH (09:00)
[2017-01-28] MEDS: Lactobacillus Rhamnosus 10 Billion CFU Capsule PO SCH (09:01)
--- NOTE | 2017-01-28 09:16 | General Progress Note ---
Subjective - Review of Systems Service Date: 01/28/17 Events since last encounter: labs ok denies pain/tenderness check with OR today shows lack of long instruments for lap alecia which could be needed fot this obese patient DC and refer to another facility for the surgery Objective - Results Result Diagrams: 01/28/17 06:00 01/28/17 06:00 Recent Labs: Laboratory Last Values WBC 9.0 Th/cmm (4.8-10.8) D 01/28/17 06:00 RBC 5.40 Mil/cmm (4.30-5.70) 01/28/17 06:00 Hgb 13.6 gm/dL (12-16) 01/28/17 06:00 Hct 40.2 % (41.0-60) L 01/28/17 06:00 MCV 74.4 fl (80-99) L 01/28/17 06:00 MCH 25.2 pg (26.0-30.0) L 01/28/17 06:00 MCHC Differential 33.9 pg (28.0-36.0) 01/28/17 06:00 RDW 13.6 % (11.5-20.0) 01/28/17 06:00 Plt Count 264 Th/cmm (150-400) D 01/28/17 06:00 MPV 8.6 fl 01/28/17 06:00 Neutrophils % 63.6 % (40.0-80.0) 01/28/17 06:00 Lymphocytes % 27.6 % (20.0-50.0) 01/28/17 06:00 Monocytes % 4.2 % (2.0-10.0) 01/28/17 06:00 Eosinophils % 3.7 % (0.0-5.0) 01/28/17 06:00 Basophils % 0.9 % (0.0-2.0) 01/28/17 06:00 Neutrophils (Manual) 94 % (40-80) H 01/21/17 21:16 Lymphocytes 4 % (20-50) L 01/21/17 21:16 Monocytes 2 % (2-10) 01/21/17 21:16 Platelet Estimate ADEQUATE (NORMAL) 01/21/17 21:16 Microcytosis 2+ 01/21/17 21:16 RBC Morph Micro Appear ABNORMAL (NORMAL) 01/21/17 21:16 PT 11.9 SECONDS (9.5-11.5) H 01/21/17 21:16 INR 1.13 (0.5-1.4) 01/21/17 21:16 Sodium 138 mEq/L (136-145) 01/28/17 06:00 Potassium 3.8 mEq/L (3.5-5.1) 01/28/17 06:00 Chloride 107 mEq/L (98-107) 01/28/17 06:00 Carbon Dioxide 22.9 mEq/L (21.0-31.0) 01/28/17 06:00 Anion Gap 11.9 (7.0-16.0) 01/28/17 06:00 BUN 8 mg/dL (7-25) 01/28/17 06:00 Creatinine 0.7 mg/dL (0.7-1.3) 01/28/17 06:00 Est GFR ( Amer) > 60.0 ml/min (>90) 01/28/17 06:00 Est GFR (Non-Af Amer) > 60.0 ml/min 01/28/17 06:00 BUN/Creatinine Ratio 11.4 01/28/17 06:00 Glucose 97 mg/dL (70-105) 01/28/17 06:00 Whole Bld Lactic Acid 1.25 mmol/L (0.60-1.99) 01/21/17 21:16 Calcium 9.3 mg/dL (8.6-10.3) 01/28/17 06:00 Magnesium 2.1 mg/dL (1.9-2.7) 01/22/17 05:30 Total Bilirubin 0.6 mg/dL (0.3-1.0) 01/28/17 06:00 Direct Bilirubin 0.18 mg/dL (0.0-0.2) 01/23/17 06:48 AST 18 U/L (13-39) 01/28/17 06:00 ALT 23 U/L (7-52) 01/28/17 06:00 Alkaline Phosphatase 99 U/L (34-104) 01/28/17 06:00 Troponin I < 0.01 ng/mL (0.01-0.05) L 01/21/17 21:16 Total Protein 7.2 gm/dL (6.0-8.3) 01/28/17 06:00 Albumin 3.8 gm/dL (4.2-5.5) L 01/28/17 06:00 Globulin 3.4 gm/dL 01/28/17 06:00 Albumin/Globulin Ratio 1.1 (1.0-1.8) 01/28/17 06:00 Triglycerides 73 mg/dL (<150) 01/22/17 13:15 Amylase 49 U/L (29-103) 01/24/17 05:48 Lipase 34 U/L (11-82) 01/24/17 05:48 TSH 1.75 uIU/ml (0.34-5.60) 01/21/17 21:16 Urine Source CLEAN C 01/23/17 10:15 Urine Color YELLOW 01/23/17 10:15 Urine Clarity HAZY (CLEAR) 01/23/17 10:15 Urine pH 6.0 (4.6 - 8.0) 01/23/17 10:15 Ur Specific [place] 1.025 (1.005-1.030) 01/23/17 10:15 Urine Protein 30 mg/dL (NEGATIVE) H 01/23/17 10:15 Urine Glucose (UA) NEGATIVE mg/dL (NEGATIVE) 01/23/17 10:15 Urine Ketones 40 mg/dL (NEGATIVE) H 01/23/17 10:15 Urine Blood NEGATIVE (NEGATIVE) 01/23/17 10:15 Urine Nitrate NEGATIVE (NEGATIVE) 01/23/17 10:15 Urine Bilirubin SMALL (NEGATIVE) H 01/23/17 10:15 Urine Urobilinogen 2.0 E.U./dL (0.2 - 1.0) 01/23/17 10:15 Ur Leukocyte Esterase NEGATIVE (NEGATIVE) 01/23/17 10:15 Urine RBC 0-2 /hpf (0-5) H 01/23/17 10:15 Urine WBC 2-5 /hpf (0-5) H 01/23/17 10:15 Ur Epithelial Cells FEW /lpf (FEW) 01/23/17 10:15 Urine Bacteria FEW /hpf (NONE SEEN) 01/23/17 10:15 Urine Mucus FEW /lpf (FEW) 01/23/17 10:15 Urine Opiates Screen NEGATIVE (NEGATIVE) 01/23/17 10:15 Urine Methadone Screen NEGATIVE (NEGATIVE) 01/23/17 10:15 Ur Barbiturates Screen NEGATIVE (NEGATIVE) 01/23/17 10:15 Ur Tricyclics Screen NEGATIVE (NEGATIVE) 01/23/17 10:15 Ur Phencyclidine Scrn NEGATIVE (NEGATIVE) 01/23/17 10:15 Amphetamines Screen NEGATIVE (NEGATIVE) 01/23/17 10:15 U Methamphetamines Scrn NEGATIVE (NEGATIVE) 01/23/17 10:15 U Benzodiazepines Scrn NEGATIVE (NEGATIVE) 01/23/17 10:15 U Cocaine Metab Screen NEGATIVE (NEGATIVE) 01/23/17 10:15 U Cannabinoids Screen NEGATIVE (NEGATIVE) 01/23/17 10:15 RPR NONREACTIVE (NONREACTIVE) 01/21/17 21:16 - Physical Exam Vitals and I&O: Vital Signs Temp 98.5 F 01/28/17 04:00 Pulse 64 01/28/17 04:00 Resp 17 01/28/17 04:00 BP 112/68 01/28/17 04:00 Pulse Ox 98 01/28/17 04:00 Intake & Output 01/27/17 01/28/17 01/28/17 18:59 06:59 18:59 Intake Total 850 100 Balance 850 100 Weight (lbs) 127.913 kg 127.913 kg Intake: Intake, IV Amount 50 cefTRIAXone 1 gm In 50 Sodium Chloride 0.9% 50 ml @ 100 mls/hr IV Q[facility]HR [facility] Rx#:[id number] Oral 800 100 Other: # Voids 4 # Bowel Movements 1 Active Medications: Current Medications Ceftriaxone Sodium 1 gm/ (Sodium Chloride) 50 mls @ 100 mls/hr IV Q24HR [facility] Stop: 03/23/17 08:59 Last Admin: 01/28/17 09:00 Dose: 100 mls/hr Potassium Chloride/Dextrose/Sod Cl (D5-0.45ns W/20 Meq Kcl) 1,000 mls @ 75 mls/ hr IV .[id number] [facility] Stop: 03/23/17 07:59 Last Admin: 01/27/17 05:30 Dose: 75 mls/hr Lactobacillus Rhamnosus (Culturelle) 1 each PO DAILY [facility] Stop: 03/27/17 08:59 Last Admin: 01/28/17 09:01 Dose: Not Given Miscellaneous (Probiotic Screen) 1 ea MC PRN PRN PRN Reason: PROTOCOL Stop: 03/26/17 11:22 Ondansetron HCl (Zofran) 4 mg IV Q6H PRN PRN Reason: Nausea / Vomiting Stop: 03/23/17 03:05 Pantoprazole Sodium (Protonix) 40 mg IVP DAILY [facility] Stop: 03/23/17 08:59 Last Admin: 01/28/17 09:01 Dose: 40 mg General: Alert, Oriented x3, No acute distress HEENT: Atraumatic, PERRLA, EOMI Neck: Supple Cardiovascular: Regular rate, Normal S1, Normal S2 Abdomen: Bowel sounds Extremities: no Clubbing, no Cyanosis, no Edema - Procedures Procedures: Procedures Procedure Code Date CHALAZION EXCISION 10.2209/17/05 REMOVE EYELID LESION 14675 09/17/05 Nutritional Asmnt/Malnutr-PDOC - Dietary Evaluation Malnutrition Findings (Please click <Entered> for more info): Nutritional Asmnt/Malnutrition Start: 01/24/17 13: 08 Text: Status: Complete Freq: Document 01/24/17 13:59 HEN (Rec: 01/24/17 14:25 LCHENG [email or web address]) Nutritional Asmnt/Malnutrition Patient General Information Nutritional Screening High Risk Diagnosis vomiting, dehydration Pertinent Medical Hx/Surgical Hx seizure, mentally challenged Subjective Information Pt was admited for N/V and abdominal pain. Pt seen sitting on bed, alert, only [place]ican speaking. GREGG Meneses helped to translate. Pt denied N/V today, reported he noticed wt gain during the recent months. Pt appeared obese. Per notes, pt is having HIDA scan and wallow eval today. Current Diet Order/ Nutrition Support NPO Pertinent Medications Kcl IV Pertinent Labs 01/24 Cl 109H, Cr 0.6L,Glu 104 01/23 K 3.4L, Cr 0.6L, Glu 109H, ALT 58H, Alb 4.0L Nutritional Hx/Data Height 1.73 m Height (Calculated Centimeters) 172.7 Current Weight (lbs) 128.004 kg Weight (Calculated Kilograms) 128.0 Weight (Calculated Grams) 534261.8 [place] Body Weight 154 % [place] Body Weight 183 Body Mass Index (BMI) 42.9 Recent Weight Change Yes Weight Status Obese GI Symptoms GI Symptoms None Last BM 01/23 Usual diet at home cook at home, likes burger per pt Skin Integrity/Comment: intact Estimated Nutritional Goals BEE in Kcals: Adj wt of IBW Calories/Kcals/Kg adj wt 84.5 Kcals Calculated 2112-2534kcal (25-30kcal/kg) Protein: Adj wt of IBW Protein g/k.8-1 Protein Calculated 68-85 Fluid: ml 7107-6055 Nutritional Problem 1. Problem Problem obesity Etiology ?imbalanced meal, excessive calorie intake Signs/Symptoms: BMI 42.9 Malnutrition Alert Protein-Calorie Malnutrition N/A Is there a minimum of two criteria No selected? Query Text:Check all the applicable criteria. A minimum of two criteria are recommended for diagnosis of either severe or non-severe malnutrition. Intervention/Recommendation Comments 1. monitor NPO status. 2. if pt is approriate for oral diet, will recommend regular diet with texture as ST recommend. 3. monitor wt weekly, labs and skin integrity 4. F/U as high risk in 2-3 days, 01/26-01/27 Expected Outcomes/Goals Expected Outcomes/Goals 1. Ptto meet at least 75% of nutritional needs in 2-3 days 2. wt stability, skin to remain intact, labs to approach WNL, show no sign/ synptoms of dehydration
--- NOTE | 2017-01-28 13:53 | GI Progress Note ---
Subjective - Review of Systems Subjective: DENIES ABD PAIN OR N/V BEING D/C Objective - Results Result Diagrams: 01/28/17 06:00 01/28/17 06:00 Recent Labs: Laboratory Last Values WBC 9.0 Th/cmm (4.8-10.8) D 01/28/17 06:00 RBC 5.40 Mil/cmm (4.30-5.70) 01/28/17 06:00 Hgb 13.6 gm/dL (12-16) 01/28/17 06:00 Hct 40.2 % (41.0-60) L 01/28/17 06:00 MCV 74.4 fl (80-99) L 01/28/17 06:00 MCH 25.2 pg (26.0-30.0) L 01/28/17 06:00 MCHC Differential 33.9 pg (28.0-36.0) 01/28/17 06:00 RDW 13.6 % (11.5-20.0) 01/28/17 06:00 Plt Count 264 Th/cmm (150-400) D 01/28/17 06:00 MPV 8.6 fl 01/28/17 06:00 Neutrophils % 63.6 % (40.0-80.0) 01/28/17 06:00 Lymphocytes % 27.6 % (20.0-50.0) 01/28/17 06:00 Monocytes % 4.2 % (2.0-10.0) 01/28/17 06:00 Eosinophils % 3.7 % (0.0-5.0) 01/28/17 06:00 Basophils % 0.9 % (0.0-2.0) 01/28/17 06:00 Neutrophils (Manual) 94 % (40-80) H 01/21/17 21:16 Lymphocytes 4 % (20-50) L 01/21/17 21:16 Monocytes 2 % (2-10) 01/21/17 21:16 Platelet Estimate ADEQUATE (NORMAL) 01/21/17 21:16 Microcytosis 2+ 01/21/17 21:16 RBC Morph Micro Appear ABNORMAL (NORMAL) 01/21/17 21:16 PT 11.9 SECONDS (9.5-11.5) H 01/21/17 21:16 INR 1.13 (0.5-1.4) 01/21/17 21:16 Sodium 138 mEq/L (136-145) 01/28/17 06:00 Potassium 3.8 mEq/L (3.5-5.1) 01/28/17 06:00 Chloride 107 mEq/L (98-107) 01/28/17 06:00 Carbon Dioxide 22.9 mEq/L (21.0-31.0) 01/28/17 06:00 Anion Gap 11.9 (7.0-16.0) 01/28/17 06:00 BUN 8 mg/dL (7-25) 01/28/17 06:00 Creatinine 0.7 mg/dL (0.7-1.3) 01/28/17 06:00 Est GFR ( Amer) > 60.0 ml/min (>90) 01/28/17 06:00 Est GFR (Non-Af Amer) > 60.0 ml/min 01/28/17 06:00 BUN/Creatinine Ratio 11.4 01/28/17 06:00 Glucose 97 mg/dL (70-105) 01/28/17 06:00 Whole Bld Lactic Acid 1.25 mmol/L (0.60-1.99) 01/21/17 21:16 Calcium 9.3 mg/dL (8.6-10.3) 01/28/17 06:00 Magnesium 2.1 mg/dL (1.9-2.7) 01/22/17 05:30 Total Bilirubin 0.6 mg/dL (0.3-1.0) 01/28/17 06:00 Direct Bilirubin 0.18 mg/dL (0.0-0.2) 01/23/17 06:48 AST 18 U/L (13-39) 01/28/17 06:00 ALT 23 U/L (7-52) 01/28/17 06:00 Alkaline Phosphatase 99 U/L (34-104) 01/28/17 06:00 Troponin I < 0.01 ng/mL (0.01-0.05) L 01/21/17 21:16 Total Protein 7.2 gm/dL (6.0-8.3) 01/28/17 06:00 Albumin 3.8 gm/dL (4.2-5.5) L 01/28/17 06:00 Globulin 3.4 gm/dL 01/28/17 06:00 Albumin/Globulin Ratio 1.1 (1.0-1.8) 01/28/17 06:00 Triglycerides 73 mg/dL (<150) 01/22/17 13:15 Amylase 49 U/L (29-103) 01/24/17 05:48 Lipase 34 U/L (11-82) 01/24/17 05:48 TSH 1.75 uIU/ml (0.34-5.60) 01/21/17 21:16 Urine Source CLEAN C 01/23/17 10:15 Urine Color YELLOW 01/23/17 10:15 Urine Clarity HAZY (CLEAR) 01/23/17 10:15 Urine pH 6.0 (4.6 - 8.0) 01/23/17 10:15 Ur Specific [place] 1.025 (1.005-1.030) 01/23/17 10:15 Urine Protein 30 mg/dL (NEGATIVE) H 01/23/17 10:15 Urine Glucose (UA) NEGATIVE mg/dL (NEGATIVE) 01/23/17 10:15 Urine Ketones 40 mg/dL (NEGATIVE) H 01/23/17 10:15 Urine Blood NEGATIVE (NEGATIVE) 01/23/17 10:15 Urine Nitrate NEGATIVE (NEGATIVE) 01/23/17 10:15 Urine Bilirubin SMALL (NEGATIVE) H 01/23/17 10:15 Urine Urobilinogen 2.0 E.U./dL (0.2 - 1.0) 01/23/17 10:15 Ur Leukocyte Esterase NEGATIVE (NEGATIVE) 01/23/17 10:15 Urine RBC 0-2 /hpf (0-5) H 01/23/17 10:15 Urine WBC 2-5 /hpf (0-5) H 01/23/17 10:15 Ur Epithelial Cells FEW /lpf (FEW) 01/23/17 10:15 Urine Bacteria FEW /hpf (NONE SEEN) 01/23/17 10:15 Urine Mucus FEW /lpf (FEW) 01/23/17 10:15 Urine Opiates Screen NEGATIVE (NEGATIVE) 01/23/17 10:15 Urine Methadone Screen NEGATIVE (NEGATIVE) 01/23/17 10:15 Ur Barbiturates Screen NEGATIVE (NEGATIVE) 01/23/17 10:15 Ur Tricyclics Screen NEGATIVE (NEGATIVE) 01/23/17 10:15 Ur Phencyclidine Scrn NEGATIVE (NEGATIVE) 01/23/17 10:15 Amphetamines Screen NEGATIVE (NEGATIVE) 01/23/17 10:15 U Methamphetamines Scrn NEGATIVE (NEGATIVE) 01/23/17 10:15 U Benzodiazepines Scrn NEGATIVE (NEGATIVE) 01/23/17 10:15 U Cocaine Metab Screen NEGATIVE (NEGATIVE) 01/23/17 10:15 U Cannabinoids Screen NEGATIVE (NEGATIVE) 01/23/17 10:15 RPR NONREACTIVE (NONREACTIVE) 01/21/17 21:16 - Physical Exam Vitals and I&O: Vital Signs Temp 98.1 F 01/28/17 11:27 Pulse 64 01/28/17 11:27 Resp 18 01/28/17 11:27 BP 115/66 01/28/17 11:27 Pulse Ox 97 01/28/17 11:27 Intake & Output 01/27/17 01/28/17 01/28/17 18:59 06:59 18:59 Intake Total 850 100 Balance 850 100 Weight (lbs) 127.913 kg 127.913 kg Intake: Intake, IV Amount 50 cefTRIAXone 1 gm In 50 Sodium Chloride 0.9% 50 ml @ 100 mls/hr IV Q24HR [facility] Rx#:[id number] Oral 800 100 Other: # Voids 4 # Bowel Movements 1 Active Medications: Current Medications Ceftriaxone Sodium 1 gm/ (Sodium Chloride) 50 mls @ 100 mls/hr IV Q24HR [facility] Stop: 03/23/17 08:59 Last Admin: 01/28/17 09:00 Dose: 100 mls/hr Potassium Chloride/Dextrose/Sod Cl (D5-0.45ns W/20 Meq Kcl) 1,000 mls @ 75 mls/ hr IV .[id number] [facility] Stop: 03/23/17 07:59 Last Admin: 01/27/17 05:30 Dose: 75 mls/hr Lactobacillus Rhamnosus (Culturelle) 1 each PO DAILY [facility] Stop: 03/27/17 08:59 Last Admin: 01/28/17 09:01 Dose: Not Given Miscellaneous (Probiotic Screen) 1 ea MC PRN PRN PRN Reason: PROTOCOL Stop: 03/26/17 11:22 Ondansetron HCl (Zofran) 4 mg IV Q6H PRN PRN Reason: Nausea / Vomiting Stop: 03/23/17 03:05 Pantoprazole Sodium (Protonix) 40 mg IVP DAILY [facility] Stop: 03/23/17 08:59 Last Admin: 01/28/17 09:01 Dose: 40 mg General: Alert, Oriented x3, No acute distress HEENT: Atraumatic, PERRLA, EOMI Neck: Supple Cardiovascular: Regular rate, Normal S1, Normal S2 Abdomen: Bowel sounds Extremities: no Clubbing, no Cyanosis, no Edema - Procedures Procedures: Procedures Procedure Code Date CHALAZION EXCISION 08.09/17/05 REMOVE EYELID LESION 02870 09/17/05 Assessment/Plan - Assessment Assessment: 21 YO MALE WITH PANCREATITIS LIKELY GALLSTONE IMPROVING HIDA WAS POSITIVE FOR CHOLECYSTITIS SURGERY CONSIDERED BUT THEY DO NOT HAVE THE PROPER EQUIPMENT THEREFORE PT BEING D/C TO HAVE IT DONE AT ANOTHER INSTITUTION LFTS AND LIPASE NORMAL 1.CONT SUPP CARE 2.F/U WITH PCP AND SURGEON ALEJANDRA 3.WILL SEE NEEDED; CALL IF QUESTIONS
== END 2017-01-28 15:00 | disposition home or self-care (01) | DRG 282 ==
LOC: ER 20:24 → MSI 01-22 00:40 → OBSVTOIN 01-22 00:40 → MSI 01-22 01:20
PROVIDERS: ADMIT Family Medicine; ATTEND Family Medicine
DX: K85.10 Biliary acute pancreatitis without necrosis or infection (principal); E66.01 Morbid (severe) obesity due to excess calories; Z68.41 Body mass index [BMI] 40.0-44.9, adult; E87.6 Hypokalemia; G40.909 Epilepsy, unspecified, not intractable, without status epilepticus; K52.9 Noninfective gastroenteritis and colitis, unspecified; F79 Unspecified intellectual disabilities; K80.10 Calculus of gallbladder with chronic cholecystitis without obstruction
CPT/HCPCS: 36415-UA; 71010-TC; 76700-TC; 78226-TC; 80048-TC; 80053-TC; 80307; 81001-TC; 82150-TC; 82248-TC; 83605; 83690-TC; 83735-TC; 84132-TC; 84443-TC; 84478-TC; 84484-TC; 85007-TC; 85025-TC; 85027-TC; 85610-TC; 86592-TC; 90784; 93005; 96374; 96375; A9537; C9113; J0696; J2001; J2405; J3480; Q0162; Q9967; X3401; Z7610